=== PATIENT | female | born 1995 | race African-American/Black ===

== ENCOUNTER 2019-05-17 11:41 | Emergency (ER) | payer MEDICAID ==
--- NOTE | 2019-05-17 11:54 | ED Physician Documentation ---
PD HPI URI - Stated complaint Stated Complaint: SORE THROAT - History obtained from History obtained from: Patient - History of Present Illness Timing - onset: How many days ago (3) Timing duration: Days (3) Timing details: Gradual onset, Still present Associated symptoms: Sore throat, Swollen nodes. No: Fever, Nasal congestion, Sinus pain, Dry cough, Dyspnea, NVD Contributing factors: No: Sick contact, COPD / asthma Similar symptoms before: Has not had sx before Review of Systems Constitutional: reports: Fever (mild subjective) Nose: denies: Rhinorrhea / runny nose, Congestion Throat: reports: Sore throat, Swollen tonsils Respiratory: denies: Cough GI: denies: Nausea, Vomiting, Diarrhea Skin: denies: Rash PD PAST MEDICAL HISTORY - Past Medical History Cardiovascular: None Respiratory: None - Present Medications Home Medications: Ambulatory Orders Medication Instructions Recorded Confirmed Cephalexin [Keflex] 500 mg PO TID #20 capsule 05/17/19 dexAMETHasone [Decadron] 4 mg PO DAILY #5 tablet 05/17/19 - Allergies Allergies/Adverse Reactions: Allergies Allergy/AdvReac Type Severity Reaction Status Date / Time No Known Drug Allergies Allergy Verified 05/17/19 11:52 PD ED PE NORMAL - Vitals Vital signs reviewed: Yes - General General: Alert and oriented X 3, No acute distress, Well developed/nourished - HEENT HEENT: Other (some distortion of her voice from tonsil swelling). No: Pharynx benign - Neck Neck: Supple, no meningeal sign, Other (Mild swelling in the anterior adenopathy more on the right. The posterior pharynx shows tonsillar swelling more to the right and very mild amount of peritonsillar redness and inflammation but no obvious fluctuance or deviation of the tonsil. Left tonsil is also enlarged with some mild redness.) - Cardiac Cardiac: RRR, No murmur - Respiratory Respiratory: Clear bilaterally - Derm Derm: Normal color, Warm and dry Results - Vitals Vitals: Vital Signs - 24 hr 05/17/19 05/17/19 11:52 13:02 Temperature 37.2 C 37.3 C Heart Rate 116 H 114 H Respiratory 17 20 Rate Blood Pressure 134/82 H 133/81 H O2 Saturation 98 98 Oxygen O2 Source Room air - Labs Labs: Laboratory Tests 05/17/19 11:56 Group A Strep Rapid Negative PD MEDICAL DECISION MAKING - ED course Complexity details: considered differential (Seems isolated symptoms to tonsillitis and some mild peritonsillitis. We will treat as presumptive bacterial at this point given the isolated symptoms and findings.), d/w patient Departure - Departure Disposition: 01 Home, Self Care Clinical Impression: Peritonsillar cellulitis Acute pharyngitis Qualifiers: Pharyngitis/tonsillitis etiology: unspecified etiology Qualified Code(s): J02.9 - Acute pharyngitis, unspecified Condition: Stable Record reviewed to determine appropriate education?: Yes Instructions: ED Strep Pharyngitis Poss Prescriptions: Cephalexin [Keflex] 500 mg PO TID #20 capsule dexAMETHasone [Decadron] 4 mg PO DAILY #5 tablet Comments: Your rapid strep test is negative but it still clinically seems likely to be a bacterial infection given the swelling and redness of the tonsils. We will treated with an antibiotic and anti-inflammatory at this point. We will are doing a culture of your throat and that will result in 2 to 3 days to see if it verifies a bacterial infection. Take the cephalexin in dexamethasone antibiotic and steroid as directed. Stay well-hydrated. Tylenol or ibuprofen for fevers or pains. Recheck if not improving well over the next few days. Discharge Date/Time: 05/17/19 13:03
[2019-05-17] MEDS ORDERED: CHERRY SYRUP 10 ML UDC PO ONE (12:07)
[2019-05-17] MEDS ORDERED: cephALEXin 250 MG CAPSULE PO STA (12:07)
[2019-05-17] MEDS ORDERED: DEXAMETHASONE 10 MG/ML VIAL PO STA (12:07)
[2019-05-17] MEDS ORDERED: ACETAMINOPHEN 325 MG TABLET PO STA (12:09)
[2019-05-17 12:38] LABS: RAPID STREP SCREEN Negative (Negative)
[2019-05-17 13:03] VITALS: BP 133/81
== END 2019-05-17 13:03 | disposition home or self-care (01) ==
LOC: ED 11:41
DX: J36 Peritonsillar abscess (principal)
CPT/HCPCS: 87070; 87430; 99283; 99284; A9270

== ENCOUNTER 2021-12-02 18:33 | Emergency (ER) | payer MEDICAID ==
--- OUTSIDE RECORDS SUMMARY | 2021-12-02 18:53 | EXTERNAL MEDICAL SUMMARY RPT | Continuity of Care Document ---
:1995 Author Organization [facility] Address [address] [place] [address] Phone Allergies No information. Encounters No information. Functional Status No information. Immunizations No information. Medications No information. Problems No information. Procedures No information. Results/Labs test date author facility value unit interpret ation Result panel 1 (unknown) (no (unknown) (unknown) (no value) (units (unk nown) date) unknown) (unknown) (no (unknown) (unknown) 11/08/21 (units (unkno wn) date) unknown) (unknown) (no (unknown) (unknown) Age/Sex: 26 / F (units (unknown) date) Date of Service: unknown) (unknown) (no (unknown) (unknown) Allergic (units (unkno wn) date) rhinitis unknown) (unknown) (no (unknown) (unknown) Allergies (units (unkn own) date) unknown) (unknown) (no (unknown) (unknown) [facility] (units (unknown) date) Medicine unknown) (unknown) (no (unknown) (unknown) [place], [place] (units ( unknown) date) [id number] unknown) (unknown) (no (unknown) (unknown) Assessment + (units (u nknown) date) Plan unknown) (unknown) (no (unknown) (unknown) Attending Dr: (units ( unknown) date) Annabelle Paniagua unknown) MIXER ATTENDANT (unknown) (no (unknown) (unknown) Back pain (units (unkn own) date) (-07/2018) unknown) (unknown) (no (unknown) (unknown) Carpal tunnel (units ( unknown) date) syndrome unknown) (unknown) (no (unknown) (unknown) : 1995 (units (unknown) date) Acct:[id number] unknown) (unknown) (no (unknown) (unknown) Dept at (units (unkno wn) date) . unknown) (unknown) (no (unknown) (unknown) Documented By: (units (unknown) date) ArceliaAnnabelle unknown) [facility] 11/08/21 1002 (unknown) (no (unknown) (unknown) Draft (units (unkno wn) date) unknown) (unknown) (no (unknown) (unknown) Family History (units (unknown) date) (Reviewed unknown) 10/05/20 @ 08:44 by Benito Lee MD) (unknown) (no (unknown) (unknown) Family Practice (units (unknown) date) Office Visit unknown) (unknown) (no (unknown) (unknown) Father No (units (unkn own) date) problems noted. unknown) (unknown) (no (unknown) (unknown) Grandfather (units (un known) date) Altered renal unknown) tissue perfusion (unknown) (no (unknown) (unknown) Grandfather (units (un known) date) Unknown whether unknown) patient has any health problems (unknown) (no (unknown) (unknown) Grandmother No (units (unknown) date) problems noted. unknown) (unknown) (no (unknown) (unknown) Grandmother (units (un known) date) Unknown whether unknown) patient has any health problems (unknown) (no (unknown) (unknown) Hypertension (units (u nknown) date) unknown) (unknown) (no (unknown) (unknown) Intake Note: (units (u nknown) date) unknown) (unknown) (no (unknown) (unknown) Intake performed (units (unknown) date) by: unknown) Jong Yuen (unknown) (no (unknown) (unknown) Intake (units (unkno wn) date) unknown) (unknown) (no (unknown) (unknown) Intake- Clincial (units (unknown) date) Staff unknown) (unknown) (no (unknown) (unknown) Last Menstural (units (unknown) date) Cycle + Details unknown) (unknown) (no (unknown) (unknown) Loc: [facility] (units (unkno wn) date) unknown) (unknown) (no (unknown) (unknown) [id number] (units (unk nown) date) unknown) (unknown) (no (unknown) (unknown) Medical History (units (unknown) date) (Reviewed unknown) 10/05/20 @ 08:44 by Benito Lee MD) (unknown) (no (unknown) (unknown) Migraine (units (unkno wn) date) unknown) (unknown) (no (unknown) (unknown) Mother Adopted (units (unknown) date) unknown) (unknown) (no (unknown) (unknown) No Known Drug (units ( unknown) date) Allergies Allergy unknown) (Verified 12/05/20 14:54) (unknown) (no (unknown) (unknown) No active (units (unkn own) date) medical problems unknown) (unknown) (no (unknown) (unknown) Obesity (units (unkno wn) date) unknown) (unknown) (no (unknown) (unknown) Orders (units (unkno wn) date) unknown) (unknown) (no (unknown) (unknown) Orders: (units (unkno wn) date) unknown) (unknown) (no (unknown) (unknown) Other Menstrual (units (unknown) date) Period: Other unknown) ( ) (unknown) (no (unknown) (unknown) PFSH (units (unkno wn) date) unknown) (unknown) (no (unknown) (unknown) POC Urine Dip (units ( unknown) date) Today R30.0 - unknown) Dysuria (unknown) (no (unknown) (unknown) Patient: (units (unkno wn) date) VillarrealHamiltonOswald unknown) N MR#: (unknown) (no (unknown) (unknown) Post (units (un known) date) depression unknown) () (unknown) (no (unknown) (unknown) 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 unknown) (unknown) (no (unknown) (unknown) Smoking Status: (units (unknown) date) Never smoker unknown) (unknown) (no (unknown) (unknown) Social History (units (unknown) date) unknown) (unknown) (no (unknown) (unknown) This note may (units ( unknown) date) have been all or unknown) partially generated using voice recognition (unknown) (no (unknown) (unknown) Tobacco + (units (unkn own) date) Substance Use unknown) (unknown) (no (unknown) (unknown) Tobacco Status (units (unknown) date) unknown) (unknown) (no (unknown) (unknown) Urine Culture (units ( unknown) date) Today R30.0 - unknown) Dysuria (unknown) (no (unknown) (unknown) Visit Reasons: (units (unknown) date) Poss UTI unknown) (unknown) (no (unknown) (unknown) alcohol intake: (units (unknown) date) former unknown) (unknown) (no (unknown) (unknown) current (units (unkno wn) date) occupational unknown) exposures/hazards : No (unknown) (no (unknown) (unknown) education level: (units (unknown) date) high school unknown) (unknown) (no (unknown) (unknown) zoila/mandaeism: (units (unknown) date) Pentecostalism unknown) (unknown) (no (unknown) (unknown) have occurred. (units (unknown) date) If there are any unknown) questions, please contact the Medical Records (unknown) (no (unknown) (unknown) household (units (unkn own) date) members: spouse unknown) and children (unknown) (no (unknown) (unknown) lives (units (unkno wn) date) independently: unknown) Yes (unknown) (no (unknown) (unknown) marital status: (units (unknown) date) unknown) (unknown) (no (unknown) (unknown) may occur. (units (unk nown) date) Occasional unknown) wrong-word or 'sound-alike' substitutions may have (unknown) (no (unknown) (unknown) number of (units (unkn own) date) children: 1 unknown) (unknown) (no (unknown) (unknown) occupational (units (u nknown) date) status: unknown) unemployed (unknown) (no (unknown) (unknown) occurred due to (units (unknown) date) the inherent unknown) limitations of voice recognition software. Please (unknown) (no (unknown) (unknown) pets and (units (unkno wn) date) animals: Yes (X 1 unknown) dog) (unknown) (no (unknown) (unknown) read the note (units ( unknown) date) carefully and unknown) recognize, using context, where these substitutions (unknown) (no (unknown) (unknown) second hand (units (un known) date) exposure: No unknown) (unknown) (no (unknown) (unknown) software. (units (unkn own) date) Although every unknown) effort is made to edit content, research and development chemist errors (unknown) (no (unknown) (unknown) special zoila (units ( unknown) date) needs: No unknown) (unknown) (no (unknown) (unknown) substance use (units ( unknown) date) type: does not unknown) use and marijuana Result panel 2 (unknown) (no (unknown) (unknown) (no value) (units (unk nown) date) unknown) (unknown) (no (unknown) (unknown) 11/08/21 (units (unkno wn) date) unknown) (unknown) (no (unknown) (unknown) 11/08/21] (units (unkn own) date) unknown) (unknown) (no (unknown) (unknown) 10:10 (units (unkno wn) date) unknown) (unknown) (no (unknown) (unknown) 10:13 (units (unkno wn) date) unknown) (unknown) (no (unknown) (unknown) 13 (units (unkno wn) date) unknown) (unknown) (no (unknown) (unknown) 2 (units (unkno wn) date) unknown) (unknown) (no (unknown) (unknown) 22 (units (unkno wn) date) unknown) (unknown) (no (unknown) (unknown) :13 (units (unkno wn) date) unknown) (unknown) (no (unknown) (unknown) Age/Sex: 26 / F (units (unknown) date) Date of Service: unknown) (unknown) (no (unknown) (unknown) Allergic (units (unkno wn) date) rhinitis unknown) (unknown) (no (unknown) (unknown) Allergies (units (unkn own) date) unknown) (unknown) (no (unknown) (unknown) [facility] (units (unknown) date) Medicine unknown) (unknown) (no (unknown) (unknown) [place], [place] (units ( unknown) date) [id number] unknown) (unknown) (no (unknown) (unknown) Assessment + (units (u nknown) date) Plan unknown) (unknown) (no (unknown) (unknown) Attending Dr: (units ( unknown) date) Annabelle Paniagua unknown) MIXER ATTENDANT (unknown) (no (unknown) (unknown) BMI 43.1 (units (unkno wn) date) unknown) (unknown) (no (unknown) (unknown) BP 124/70 (units (unkn own) date) unknown) (unknown) (no (unknown) (unknown) Back pain (units (unkn own) date) (-07/2018) unknown) (unknown) (no (unknown) (unknown) Blood Pressure (units (unknown) date) Location Lt unknown) brachial (unknown) (no (unknown) (unknown) Carpal tunnel (units ( unknown) date) syndrome unknown) (unknown) (no (unknown) (unknown) : 1995 (units (unknown) date) Acct:[id number] unknown) (unknown) (no (unknown) (unknown) Dept at (units (unkno wn) date) . unknown) (unknown) (no (unknown) (unknown) Documented By: (units (unknown) date) Annabelle Paniagua unknown) MIXER ATTENDANT 11/08/21 1002 (unknown) (no (unknown) (unknown) Draft (units (unkno wn) date) unknown) (unknown) (no (unknown) (unknown) Family History (units (unknown) date) (Reviewed unknown) 10/05/20 @ 08:44 by Benito Lee MD) (unknown) (no (unknown) (unknown) Family Practice (units (unknown) date) Office Visit unknown) (unknown) (no (unknown) (unknown) Father No (units (unkn own) date) problems noted. unknown) (unknown) (no (unknown) (unknown) Grandfather (units (un known) date) Altered renal unknown) tissue perfusion (unknown) (no (unknown) (unknown) Grandfather (units (un known) date) Unknown whether unknown) patient has any health problems (unknown) (no (unknown) (unknown) Grandmother No (units (unknown) date) problems noted. unknown) (unknown) (no (unknown) (unknown) Grandmother (units (un known) date) Unknown whether unknown) patient has any health problems (unknown) (no (unknown) (unknown) Height 5 ft 3 in (units (unknown) date) unknown) (unknown) (no (unknown) (unknown) Hypertension (units (u nknown) date) unknown) (unknown) (no (unknown) (unknown) Intake Note: (units (u nknown) date) unknown) (unknown) (no (unknown) (unknown) Intake performed (units (unknown) date) by: unknown) Jong Yuen (unknown) (no (unknown) (unknown) Intake (units (unkno wn) date) unknown) (unknown) (no (unknown) (unknown) Intake- Clincial (units (unknown) date) Staff unknown) (unknown) (no (unknown) (unknown) Last Menstural (units (unknown) date) Cycle + Details unknown) (unknown) (no (unknown) (unknown) Loc: [facility] (units (unkno wn) date) unknown) (unknown) (no (unknown) (unknown) [id number] (units (unk nown) date) unknown) (unknown) (no (unknown) (unknown) Medical History (units (unknown) date) (Reviewed unknown) 10/05/20 @ 08:44 by Benito Lee MD) (unknown) (no (unknown) (unknown) Medications (units (un known) date) unknown) (unknown) (no (unknown) (unknown) Migraine (units (unkno wn) date) unknown) (unknown) (no (unknown) (unknown) Mother Adopted (units (unknown) date) unknown) (unknown) (no (unknown) (unknown) No Known Drug (units ( unknown) date) Allergies Allergy unknown) (Verified 11/08/21 10:09) (unknown) (no (unknown) (unknown) No active (units (unkn own) date) medical problems unknown) (unknown) (no (unknown) (unknown) Obesity (units (unkno wn) date) unknown) (unknown) (no (unknown) (unknown) Orders (units (unkno wn) date) unknown) (unknown) (no (unknown) (unknown) Orders: (units (unkno wn) date) unknown) (unknown) (no (unknown) (unknown) Other Menstrual (units (unknown) date) Period: Other unknown) ( ) (unknown) (no (unknown) (unknown) Oxygen Delivery (units (unknown) date) Method room air unknown) (unknown) (no (unknown) (unknown) PFSH (units (unkno wn) date) unknown) (unknown) (no (unknown) (unknown) POC Urine Dip (units ( unknown) date) Today R30.0 - unknown) Dysuria (unknown) (no (unknown) (unknown) Patient: (units (unkno wn) date) VillarrealOswald unknown) N MR#: (unknown) (no (unknown) (unknown) Position Sitting (units (unknown) date) unknown) (unknown) (no (unknown) (unknown) Post (units (un known) date) depression unknown) (-09/2018) (unknown) (no (unknown) (unknown) 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 unknown) Lower back and flank pain for a couple months. (unknown) (no (unknown) (unknown) Pulse 85 (units (unkno wn) date) unknown) (unknown) (no (unknown) (unknown) Pulse Oximetry (units (unknown) date) (%) 99 unknown) (unknown) (no (unknown) (unknown) Pulse Source (units (u nknown) date) Monitor unknown) (unknown) (no (unknown) (unknown) Reason For Visit (units (unknown) date) unknown) (unknown) (no (unknown) (unknown) Relief) 1 spray (units (unknown) date) intranasal DAILY unknown) 10/29/19 [History Confirmed 11/08/21] (unknown) (no (unknown) (unknown) Respiration 14 (units (unknown) date) unknown) (unknown) (no (unknown) (unknown) Results (units (unkno wn) date) unknown) (unknown) (no (unknown) (unknown) (spontaneous (units (unknown) date) vaginal delivery) unknown) (-10/01/18) (unknown) (no (unknown) (unknown) Signed By: (units (unk nown) date) unknown) (unknown) (no (unknown) (unknown) Sister No (units (unkn own) date) problems noted. unknown) (unknown) (no (unknown) (unknown) Smoking Status: (units (unknown) date) Never smoker unknown) (unknown) (no (unknown) (unknown) Social History (units (unknown) date) unknown) (unknown) (no (unknown) (unknown) Temp 97.8 F (units (un known) date) unknown) (unknown) (no (unknown) (unknown) Temp Source Skin (units (unknown) date) unknown) (unknown) (no (unknown) (unknown) This note may (units ( unknown) date) have been all or unknown) partially generated using voice recognition (unknown) (no (unknown) (unknown) Tobacco + (units (unkn own) date) Substance Use unknown) (unknown) (no (unknown) (unknown) Tobacco Status (units (unknown) date) unknown) (unknown) (no (unknown) (unknown) Urine Appearance (units (unknown) date) Clear Last Edit unknown) by Jong Yuen MA on 11/08/21 10:13 (unknown) (no (unknown) (unknown) Urine Bilirubin (units (unknown) date) Negative Last unknown) Edit by Jong Yuen MA on 11/08/21 10:13 (unknown) (no (unknown) (unknown) Urine Blood (units (un known) date) Negative Last unknown) Edit by Jong Yuen MA on 11/08/21 10:13 (unknown) (no (unknown) (unknown) Urine Color (units (un known) date) Yellow Last Edit unknown) by Jong Yuen MA on 11/08/21 10:13 (unknown) (no (unknown) (unknown) Urine Culture (units ( unknown) date) Today R30.0 - unknown) Dysuria (unknown) (no (unknown) (unknown) Urine Dipstick (units (unknown) date) unknown) (unknown) (no (unknown) (unknown) Urine Glucose (units ( unknown) date) Negative mg/dL unknown) Last Edit by Jong Yuen MA on 11/08/21 10: (unknown) (no (unknown) (unknown) Urine Ketones (units ( unknown) date) Negative Last unknown) Edit by Jong Yuen MA on 11/08/21 10:13 (unknown) (no (unknown) (unknown) Urine Leukocyte (units (unknown) date) Esterase Negative unknown) Last Edit by Jong Yuen MA on (unknown) (no (unknown) (unknown) Urine Nitrate (units ( unknown) date) Negative Last unknown) Edit by Jong Yuen MA on 11/08/21 10:13 (unknown) (no (unknown) (unknown) Urine Protein +- (units (unknown) date) 15 mg/dL Last unknown) Edit by Jong Yuen MA on 11/08/21 10:13 (unknown) (no (unknown) (unknown) Urine Specific (units (unknown) date) [place] 1.025 unknown) Last Edit by Jong Yuen MA on 11/08/21 10 (unknown) (no (unknown) (unknown) Urine (units (unkno wn) date) Urobilinogen - unknown) 0.2 mg/dL Last Edit by Jong Yuen MA on (unknown) (no (unknown) (unknown) Urine pH 6.0 (units (u nknown) date) Last Edit by unknown) Jong Yuen MA on 11/08/21 10:13 (unknown) (no (unknown) (unknown) Visit Reasons: (units (unknown) date) Poss UTI unknown) (unknown) (no (unknown) (unknown) Vitals (units (unkno wn) date) unknown) (unknown) (no (unknown) (unknown) Weight 243 lb 6 (units (unknown) date) oz unknown) (unknown) (no (unknown) (unknown) [Rx Confirmed (units ( unknown) date) 11/08/21] unknown) (unknown) (no (unknown) (unknown) alcohol intake: (units (unknown) date) former unknown) (unknown) (no (unknown) (unknown) current (units (unkno wn) date) occupational unknown) exposures/hazards : No (unknown) (no (unknown) (unknown) education level: (units (unknown) date) high school unknown) (unknown) (no (unknown) (unknown) zoila/mandaeism: (units (unknown) date) Pentecostalism unknown) (unknown) (no (unknown) (unknown) ferrous gluconate (units (unknown) date) 324 mg (37.5 mg unknown) iron) tablet 324 mg PO DAILY #90 tabs 03/15/20 (unknown) (no (unknown) (unknown) fluticasone (units (un known) date) propionate 50 unknown) mcg/actuation nasal spray,suspension (Flonase Allergy (unknown) (no (unknown) (unknown) have occurred. (units (unknown) date) If there are any unknown) questions, please contact the Medical Records (unknown) (no (unknown) (unknown) household (units (unkn own) date) members: spouse unknown) and children (unknown) (no (unknown) (unknown) lives (units (unkno wn) date) independently: unknown) Yes (unknown) (no (unknown) (unknown) marital status: (units (unknown) date) unknown) (unknown) (no (unknown) (unknown) may occur. (units (unk nown) date) Occasional unknown) wrong-word or 'sound-alike' substitutions may have (unknown) (no (unknown) (unknown) norethindrone (units ( unknown) date) (contraceptive) unknown) 0.35 mg tablet 0.35 mg PO DAILY #84 tabs 12/05/20 (unknown) (no (unknown) (unknown) number of (units (unkn own) date) children: 1 unknown) (unknown) (no (unknown) (unknown) occupational (units (u nknown) date) status: unknown) unemployed (unknown) (no (unknown) (unknown) occurred due to (units (unknown) date) the inherent unknown) limitations of voice recognition software. Please (unknown) (no (unknown) (unknown) pets and (units (unkno wn) date) animals: Yes (X 1 unknown) dog) (unknown) (no (unknown) (unknown) prenat.vits,tamia, (units (unknown) date) pat-eotb-erxga 1 unknown) tab PO DAILY #90 tabs 03/15/20 [Rx Confirmed (unknown) (no (unknown) (unknown) read the note (units ( unknown) date) carefully and unknown) recognize, using context, where these substitutions (unknown) (no (unknown) (unknown) second hand (units (un known) date) exposure: No unknown) (unknown) (no (unknown) (unknown) software. (units (unkn own) date) Although every unknown) effort is made to edit content, research and development chemist errors (unknown) (no (unknown) (unknown) special zoila (units ( unknown) date) needs: No unknown) (unknown) (no (unknown) (unknown) substance use (units ( unknown) date) type: does not unknown) use and marijuana Result panel 3 (unknown) (no (unknown) (unknown) (no value) (units (unk nown) date) unknown) (unknown) (no (unknown) (unknown) (1) Suprapubic (units (unknown) date) pressure: unknown) (unknown) (no (unknown) (unknown) 11/08/21 1023 (units ( unknown) date) unknown) (unknown) (no (unknown) (unknown) 11/08/21 (units (unkno wn) date) unknown) (unknown) (no (unknown) (unknown) 11/08/21] (units (unkn own) date) unknown) (unknown) (no (unknown) (unknown) 10:10 (units (unkno wn) date) unknown) (unknown) (no (unknown) (unknown) 10:13 (units (unkno wn) date) unknown) (unknown) (no (unknown) (unknown) 13 (units (unkno wn) date) unknown) (unknown) (no (unknown) (unknown) 2 (units (unkno wn) date) unknown) (unknown) (no (unknown) (unknown) 22 (units (unkno wn) date) unknown) (unknown) (no (unknown) (unknown) :13 (units (unkno wn) date) unknown) (unknown) (no (unknown) (unknown) Age/Sex: 26 / F (units (unknown) date) Date of Service: unknown) (unknown) (no (unknown) (unknown) Allergic rhinitis (units (unknown) date) unknown) (unknown) (no (unknown) (unknown) Allergies (units (unkn own) date) unknown) (unknown) (no (unknown) (unknown) [facility] (units (unknown) date) Medicine unknown) (unknown) (no (unknown) (unknown) [place], [place] (units ( unknown) date) [id number] unknown) (unknown) (no (unknown) (unknown) Assessment + Plan (units (unknown) date) unknown) (unknown) (no (unknown) (unknown) Attending Dr: (units ( unknown) date) Annabelle Paniagua unknown) MIXER ATTENDANT (unknown) (no (unknown) (unknown) BMI 43.1 (units (unkno wn) date) unknown) (unknown) (no (unknown) (unknown) BP 124/70 (units (unkn own) date) unknown) (unknown) (no (unknown) (unknown) Back pain (units (unkn own) date) () unknown) (unknown) (no (unknown) (unknown) Blood Pressure (units (unknown) date) Location Lt unknown) brachial (unknown) (no (unknown) (unknown) Carpal tunnel (units ( unknown) date) syndrome unknown) (unknown) (no (unknown) (unknown) Chief Complaint (units (unknown) date) unknown) (unknown) (no (unknown) (unknown) Chief Complaint: (units (unknown) date) Suprapubic unknown) pressure (unknown) (no (unknown) (unknown) Const (units (unkno wn) date) unknown) (unknown) (no (unknown) (unknown) : 1995 (units (unknown) date) Acct:[id number] unknown) (unknown) (no (unknown) (unknown) Dept at (units (unkno wn) date) . unknown) (unknown) (no (unknown) (unknown) Details: (units (unkno wn) date) unknown) (unknown) (no (unknown) (unknown) Documented By: (units (unknown) date) Annabelle Paniagua unknown) MIXER ATTENDANT 11/08/21 1002 (unknown) (no (unknown) (unknown) Effort + (units (unkno wn) date) Inspection: normal unknown) respiratory effort (unknown) (no (unknown) (unknown) Exam (units (unkno wn) date) unknown) (unknown) (no (unknown) (unknown) Eyes (units (unkno wn) date) unknown) (unknown) (no (unknown) (unknown) Family History (units (unknown) date) (Reviewed 10/05/20 unknown) @ 08:44 by Benito Lee MD) (unknown) (no (unknown) (unknown) Family Practice (units (unknown) date) Office Visit unknown) (unknown) (no (unknown) (unknown) Father No (units (unkn own) date) problems noted. unknown) (unknown) (no (unknown) (unknown) GI (units (unkno wn) date) unknown) (unknown) (no (unknown) (unknown) (units (unkno wn) date) unknown) (unknown) (no (unknown) (unknown) General: (units (unkno wn) date) appearance normal, unknown) both eyes and all related structures (unknown) (no (unknown) (unknown) General: (units (unkno wn) date) cooperative, unknown) healthy appearing, comfortable and no acute distress (unknown) (no (unknown) (unknown) General: no (units (un known) date) rashes or lesions unknown) noted (unknown) (no (unknown) (unknown) Grandfather (units (un known) date) Altered renal unknown) tissue perfusion (unknown) (no (unknown) (unknown) Grandfather (units (un known) date) Unknown whether unknown) patient has any health problems (unknown) (no (unknown) (unknown) Grandmother No (units (unknown) date) problems noted. unknown) (unknown) (no (unknown) (unknown) Grandmother (units (un known) date) Unknown whether unknown) patient has any health problems (unknown) (no (unknown) (unknown) HENMT (units (unkno wn) date) unknown) (unknown) (no (unknown) (unknown) HPI and exam (units (u nknown) date) indicate need for unknown) point of care urine testing that does not (unknown) (no (unknown) (unknown) HPI (units (unkno wn) date) unknown) (unknown) (no (unknown) (unknown) Head: normal to (units (unknown) date) inspection unknown) (unknown) (no (unknown) (unknown) Height 5 ft 3 in (units (unknown) date) unknown) (unknown) (no (unknown) (unknown) Hypertension (units (u nknown) date) unknown) (unknown) (no (unknown) (unknown) Inspection: (units (un known) date) normal to unknown) inspection (unknown) (no (unknown) (unknown) Intake Note: (units (u nknown) date) unknown) (unknown) (no (unknown) (unknown) Intake performed (units (unknown) date) by: Jong Yuen unknown) (unknown) (no (unknown) (unknown) Intake (units (unkno wn) date) unknown) (unknown) (no (unknown) (unknown) Intake- Clincial (units (unknown) date) Staff unknown) (unknown) (no (unknown) (unknown) Last Menstural (units (unknown) date) Cycle + Details unknown) (unknown) (no (unknown) (unknown) Loc: [facility] (units (unkno wn) date) unknown) (unknown) (no (unknown) (unknown) [id number] (units (unk nown) date) unknown) (unknown) (no (unknown) (unknown) Medical History (units (unknown) date) (Reviewed 10/05/20 unknown) @ 08:44 by Benito Lee MD) (unknown) (no (unknown) (unknown) Medications (units (un known) date) unknown) (unknown) (no (unknown) (unknown) Migraine (units (unkno wn) date) unknown) (unknown) (no (unknown) (unknown) Mother Adopted (units (unknown) date) unknown) (unknown) (no (unknown) (unknown) Neck (units (unkno wn) date) unknown) (unknown) (no (unknown) (unknown) Neck: normal (units (u nknown) date) visual inspection unknown) and full ROM (unknown) (no (unknown) (unknown) No CVA tenderness (units (unknown) date) unknown) (unknown) (no (unknown) (unknown) No Known Drug (units ( unknown) date) Allergies Allergy unknown) (Verified 11/08/21 10:09) (unknown) (no (unknown) (unknown) No active medical (units (unknown) date) problems unknown) (unknown) (no (unknown) (unknown) No tenderness (units ( unknown) date) with palpation unknown) (unknown) (no (unknown) (unknown) Obesity (units (unkno wn) date) unknown) (unknown) (no (unknown) (unknown) Orders (units (unkno wn) date) unknown) (unknown) (no (unknown) (unknown) Orders: (units (unkno wn) date) unknown) (unknown) (no (unknown) (unknown) Other Menstrual (units (unknown) date) Period: Other unknown) ( ) (unknown) (no (unknown) (unknown) Other: (units (unkno wn) date) unknown) (unknown) (no (unknown) (unknown) Oxygen Delivery (units (unknown) date) Method room air unknown) (unknown) (no (unknown) (unknown) PFSH (units (unkno wn) date) unknown) (unknown) (no (unknown) (unknown) POC Urine Dip (units ( unknown) date) Today R30.0 - unknown) Dysuria (unknown) (no (unknown) (unknown) Palpation: soft (units (unknown) date) unknown) (unknown) (no (unknown) (unknown) Patient is (units (unkn own) date) concerned for unknown) urinary tract infection as she had had similar symptoms (unknown) (no (unknown) (unknown) Patient presents (units (unknown) date) to walk-in clinic unknown) with complaints intermittent suprapubic (unknown) (no (unknown) (unknown) Patient: (units (unkno wn) date) Villarreal,Oswald N unknown) MR#: (unknown) (no (unknown) (unknown) Plan (units (unkno wn) date) unknown) (unknown) (no (unknown) (unknown) Position Sitting (units (unknown) date) unknown) (unknown) (no (unknown) (unknown) Post (units (un known) date) depression unknown) (-09/2018) (unknown) (no (unknown) (unknown) 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 unknown) Lower back and flank pain for a couple months. (unknown) (no (unknown) (unknown) Pulse 85 (units (unkno wn) date) unknown) (unknown) (no (unknown) (unknown) Pulse Oximetry (units (unknown) date) (%) 99 unknown) (unknown) (no (unknown) (unknown) Pulse Source (units (u nknown) date) Monitor unknown) (unknown) (no (unknown) (unknown) Reason For Visit (units (unknown) date) unknown) (unknown) (no (unknown) (unknown) Relief) 1 spray (units (unknown) date) intranasal DAILY unknown) 10/29/19 [History Confirmed 11/08/21] (unknown) (no (unknown) (unknown) Resp (units (unkno wn) date) unknown) (unknown) (no (unknown) (unknown) Respiration 14 (units (unknown) date) unknown) (unknown) (no (unknown) (unknown) Results (units (unkno wn) date) unknown) (unknown) (no (unknown) (unknown) (spontaneous (units (unknown) date) vaginal delivery) unknown) (-10/01/18) (unknown) (no (unknown) (unknown) Signed By: (units (unk nown) date) <Electronically unknown) signed by Annabelle Paniagua> (unknown) (no (unknown) (unknown) Signed (units (unkno wn) date) unknown) (unknown) (no (unknown) (unknown) Sister No (units (unkn own) date) problems noted. unknown) (unknown) (no (unknown) (unknown) Skin (units (unkno wn) date) unknown) (unknown) (no (unknown) (unknown) Smoking Status: (units (unknown) date) Never smoker unknown) (unknown) (no (unknown) (unknown) Social History (units (unknown) date) unknown) (unknown) (no (unknown) (unknown) Temp 97.8 F (units (un known) date) unknown) (unknown) (no (unknown) (unknown) Temp Source Skin (units (unknown) date) unknown) (unknown) (no (unknown) (unknown) This note may (units ( unknown) date) have been all or unknown) partially generated using voice recognition (unknown) (no (unknown) (unknown) Tobacco + (units (unkn own) date) Substance Use unknown) (unknown) (no (unknown) (unknown) Tobacco Status (units (unknown) date) unknown) (unknown) (no (unknown) (unknown) Urine Appearance (units (unknown) date) Clear Last Edit by unknown) Jong Yuen MA on 11/08/21 10:13 (unknown) (no (unknown) (unknown) Urine Bilirubin (units (unknown) date) Negative Last Edit unknown) by Jong Yuen MA on 11/08/21 10:13 (unknown) (no (unknown) (unknown) Urine Blood (units (un known) date) Negative Last Edit unknown) by Jong Yuen MA on 11/08/21 10:13 (unknown) (no (unknown) (unknown) Urine Color (units (un known) date) Yellow Last Edit unknown) by Jong Yuen MA on 11/08/21 10:13 (unknown) (no (unknown) (unknown) Urine Culture (units ( unknown) date) Today R30.0 - unknown) Dysuria (unknown) (no (unknown) (unknown) Urine Dipstick (units (unknown) date) unknown) (unknown) (no (unknown) (unknown) Urine Glucose (units ( unknown) date) Negative mg/dL unknown) Last Edit by Jong Yuen MA on 11/08/21 10: (unknown) (no (unknown) (unknown) Urine Ketones (units ( unknown) date) Negative Last Edit unknown) by Jong Yuen MA on 11/08/21 10:13 (unknown) (no (unknown) (unknown) Urine Leukocyte (units (unknown) date) Esterase Negative unknown) Last Edit by Jong Yuen MA on 11/08/ (unknown) (no (unknown) (unknown) Urine Nitrate (units ( unknown) date) Negative Last Edit unknown) by Jong Yuen MA on 11/08/21 10:13 (unknown) (no (unknown) (unknown) Urine Protein +- (units (unknown) date) 15 mg/dL Last Edit unknown) by Jong Yuen MA on 11/08/21 10:13 (unknown) (no (unknown) (unknown) Urine Specific (units (unknown) date) [place] 1.025 Last unknown) Edit by Jong Yuen MA on 11/08/21 10 (unknown) (no (unknown) (unknown) Urine (units (unkno wn) date) Urobilinogen - 0.2 unknown) mg/dL Last Edit by Jong Yuen MA on (unknown) (no (unknown) (unknown) Urine pH 6.0 Last (units (unknown) date) Edit by Jong unknownDerek Yuen MA on 11/08/21 10:13 (unknown) (no (unknown) (unknown) Visit Reasons: (units (unknown) date) Poss UTI unknown) (unknown) (no (unknown) (unknown) Vitals (units (unkno wn) date) unknown) (unknown) (no (unknown) (unknown) Weight 243 lb 6 (units (unknown) date) oz unknown) (unknown) (no (unknown) (unknown) Wet Prep Tric BV (units (unknown) date) [place] Today unknown) N89.8 - Other specified noninflammatory disorders (unknown) (no (unknown) (unknown) [Rx Confirmed (units ( unknown) date) 11/08/21] unknown) (unknown) (no (unknown) (unknown) ago, has not been (units (unknown) date) sexually active unknown) since. patient denies new activity, or (unknown) (no (unknown) (unknown) alcohol intake: (units (unknown) date) former unknown) (unknown) (no (unknown) (unknown) continue to (units (unk nown) date) monitor symptoms, unknown) if symptoms worsen, do not improve patient recheck (unknown) (no (unknown) (unknown) culture and treat (units (unknown) date) accordingly. We unknown) also obtained wet prep. Patient will (unknown) (no (unknown) (unknown) current (units (unkno wn) date) occupational unknown) exposures/hazards: No (unknown) (no (unknown) (unknown) education level: (units (unknown) date) high school unknown) (unknown) (no (unknown) (unknown) exercise regimen. (units (unknown) date) She denies chance unknown) of STDs. Patient denies control at (unknown) (no (unknown) (unknown) zoila/mandaeism: (units (unknown) date) [employer]ism unknown) (unknown) (no (unknown) (unknown) ferrous gluconate (units (unknown) date) 324 mg (37.5 mg unknown) iron) tablet 324 mg PO DAILY #90 tabs 03/15/20 (unknown) (no (unknown) (unknown) fluticasone (units (un known) date) propionate 50 unknown) mcg/actuation nasal spray,suspension (Flonase Allergy (unknown) (no (unknown) (unknown) have occurred. If (units (unknown) date) there are any unknown) questions, please contact the Medical Records (unknown) (no (unknown) (unknown) household (units (unkn own) date) members: spouse unknown) and children (unknown) (no (unknown) (unknown) in the past and (units (unknown) date) did have a UTI. unknown) Patient reports having normal menses 2 weeks (unknown) (no (unknown) (unknown) indicate that (units ( unknown) date) patient has a unknown) urinary tract infection. Will send off urine (unknown) (no (unknown) (unknown) lives (units (unkno wn) date) independently: Yes unknown) (unknown) (no (unknown) (unknown) marital status: (units (unknown) date) unknown) (unknown) (no (unknown) (unknown) may occur. (units (unk nown) date) Occasional unknown) wrong-word or 'sound-alike' substitutions may have (unknown) (no (unknown) (unknown) norethindrone (units ( unknown) date) (contraceptive) unknown) 0.35 mg tablet 0.35 mg PO DAILY #84 tabs 12/05/20 (unknown) (no (unknown) (unknown) number of (units (unkn own) date) children: 1 unknown) (unknown) (no (unknown) (unknown) occupational (units (u nknown) date) status: unemployed unknown) (unknown) (no (unknown) (unknown) occurred due to (units (unknown) date) the inherent unknown) limitations of voice recognition software. Please (unknown) (no (unknown) (unknown) of vagina (units (unkn own) date) unknown) (unknown) (no (unknown) (unknown) or go to the (units (u nknown) date) emergency unknown) department. Follow-up with primary care as needed. (unknown) (no (unknown) (unknown) pets and animals: (units (unknown) date) Yes (X 1 dog) unknown) (unknown) (no (unknown) (unknown) prenat.nia,tamia,m (units (unknown) date) qr-vzzu-jahcy 1 unknown) tab PO DAILY #90 tabs 03/15/20 [Rx Confirmed (unknown) (no (unknown) (unknown) pressure, low (units ( unknown) date) back pain, mild unknown) dysuria for couple of months. Patient also (unknown) (no (unknown) (unknown) read the note (units ( unknown) date) carefully and unknown) recognize, using context, where these substitutions (unknown) (no (unknown) (unknown) reports grayish (units (unknown) date) vaginal discharge. unknown) She denies fever, vomiting, constipation, (unknown) (no (unknown) (unknown) second hand (units (un known) date) exposure: No unknown) (unknown) (no (unknown) (unknown) software. (units (unkn own) date) Although every unknown) effort is made to edit content, research and development chemist errors (unknown) (no (unknown) (unknown) special zoila (units ( unknown) date) needs: No unknown) (unknown) (no (unknown) (unknown) substance use (units ( unknown) date) type: does not use unknown) and marijuana (unknown) (no (unknown) (unknown) this time. She is (units (unknown) date) alert, oriented unknown) and comfortable. (unknown) (no (unknown) (unknown) vaginal itching (units (unknown) date) or burning, unknown) vaginal lesions. She reports occasional diarrhea. Result panel 4 (unknown) (no date) (unknown) (unknown) (no value) (units (un known) unknown) (unknown) (no date) (unknown) (unknown) No WBC seen (units (u nknown) unknown) (unknown) (no date) (unknown) (unknown) None seen (units (unk nown) unknown) Result panel 5 (unknown) (no date) (unknown) (unknown) (no value) (units (un known) unknown) (unknown) (no date) (unknown) (unknown) Very Early (units (un known) Growth: Culture unknown) too young for work-up reincubated Result panel 6 (unknown) (no (unknown) (unknown) (no value) (units (unk nown) date) unknown) (unknown) (no (unknown) (unknown) <10,000 cfu/ml (unkno wn) date) (unknown) (no (unknown) (unknown) Group B Strep pos (units (unknown) date) unknown) (unknown) (no (unknown) (unknown) MIXED GRAM POSITIVE (unit s (unknown) date) ROSI unknown) (unknown) (no (unknown) (unknown) No Further Workup (units (unknown) date) unknown) (unknown) (no (unknown) (unknown) STRGRBStreptococcus (unit s (unknown) date) group B unknown) Social History No information. Vital Signs No information.
[2021-12-02 19:02] VITALS: BP 115/53
[2021-12-02] MEDS ORDERED: ACETAMINOPHEN 500 MG TABLET PO STA (20:23)
[2021-12-02 20:39] LABS: B. PARAPERTUSSIS- RESP PCR PAN NOT DETECTED; B. PERTUSSIS- RESP PCR PANEL NOT DETECTED; C. PNEUMONIAE- RESP PCR PANEL NOT DETECTED; CORONAVIRUS 229E-RESP PCR NOT DETECTED; CORONAVIRUS HKU1-RESP PCR NOT DETECTED; CORONAVIRUS NL63-RESP PCR NOT DETECTED; CORONAVIRUS OC43-RESP PCR NOT DETECTED; HUMAN METAPNEUMOVIRUS NOT DETECTED; INFLUENZA A- RESP PCR PANEL NOT DETECTED; INFLUENZA B - RESP PCR PANEL NOT DETECTED; M. PNEUMONIAE- RESP PCR PANEL NOT DETECTED; PARAINFLUENZA VIRUS 1 NOT DETECTED; PARAINFLUENZA VIRUS 2 NOT DETECTED; PARAINFLUENZA VIRUS 3 NOT DETECTED; PARAINFLUENZA VIRUS 4 NOT DETECTED; RHINOVIRUS/ENTEROVIRUS NOT DETECTED; RSV- RESP PCR PANEL NOT DETECTED; SARS-CoV-2 -RESP PCR PANEL NOT DETECTED
--- NOTE | 2021-12-02 20:46 | XRAY Report ---
PROCEDURE: Chest 1 View X-Ray INDICATIONS: cough TECHNIQUE: One view of the chest was acquired. COMPARISON: FINDINGS: Surgical changes and devices: None. Lungs and pleura: No pleural effusions or pneumothorax. Lungs are clear. Mediastinum: Mediastinal contours appear normal. Heart size is normal. Bones and chest wall: No suspicious bony lesions. There is oval density projecting over the left asp ect of the lower thoracic spine which is likely external. IMPRESSION: 1. No acute cardiopulmonary disease. 2. Oval density projecting over the lower thoracic spine is likely external. Recommend [facility] clinical exam. Reviewed by: Reinier Workman MD on 12/02/2021 8:45 PM PDT Approved by: Reinier Workman MD on 12/02/2021 8:45 PM PDT Station ID: [id number]
[2021-12-02 20:55] LABS: RAPID STREP SCREEN Negative (Negative)
--- NOTE | 2021-12-02 21:00 | ED Physician Documentation ---
PD HPI URI - Stated complaint Stated Complaint: HEADACHE/CHILLS - Chief complaint Chief Complaint: Resp - History obtained from History obtained from: Patient - Additional information Additional information: Patient is a 26-year-old Presenting for evaluation of bitemporal headache, chills, body aches, cough productive of clear phlegm, sore throat since Saturday. She is here with her 2 young children who are also being evaluated for URI symptoms. She has been using Tylenol at home which does allow her to sleep but her headache and body aches returned.She has been able to hydrate with fluids. She denies difficulty breathing, chest pain, abdominal pain, vomiting, dysuria. Review of Systems Constitutional: reports: Chills, Myalgias Nose: reports: Congestion Throat: reports: Sore throat Cardiac: denies: Chest pain / pressure Respiratory: reports: Cough. denies: Dyspnea GI: denies: Abdominal Pain, Vomiting : denies: Dysuria Musculoskeletal: denies: Back pain Neurologic: reports: Headache PD PAST MEDICAL HISTORY - Past Medical History Cardiovascular: None Respiratory: None - Present Medications Home Medications: Ambulatory Orders Medication Instructions Recorded Confirmed No Known Home Medications 12/02/21 12/02/21 - Allergies Allergies/Adverse Reactions: Allergies Allergy/AdvReac Type Severity Reaction Status Date / Time No Known Drug Allergies Allergy Verified 12/02/21 19:02 - Social History Does the pt smoke?: No Smoking Status: Never smoker Does the pt drink ETOH?: No Does the pt have substance abuse?: No PD ED PE NORMAL - General General: Alert and oriented X 3, No acute distress, Well developed/nourished - HEENT HEENT: Atraumatic, Moist mucous membranes, Pharynx benign (No significant erythema, exudate, oral swelling; normal speech) - Neck Neck: Supple, no meningeal sign, No bony TTP - Cardiac Cardiac: RRR (Patient initial heart rate was noted to be tachycardic but appears within normal limits on my evaluation), Strong equal pulses - Respiratory Respiratory: No respiratory distress, Clear bilaterally - Abdomen Abdomen: Normal bowel sounds, Soft, Non tender, Non distended - Derm Derm: Warm and dry - Extremities Extremities: No edema - Neuro Neuro: Alert and oriented X 3, No motor deficit, Normal speech Results - Vitals Vitals: Vital Signs - 24 hr 12/02/21 18:59 Temperature 36.7 C Heart Rate 115 H Respiratory 18 Rate Blood Pressure 115/53 L O2 Saturation 97 Oxygen O2 Source Room air - Labs Labs: Laboratory Tests 12/02/21 12/02/21 19:05 20:41 Nasal Adenovirus (PCR) NOT DETECTED Nasal B. parapertussis DNA (PCR) NOT DETECTED Nasal Coronavir 229E PCR NOT DETECTED Nasal Coronavir HKU1 PCR NOT DETECTED Nasal Coronavir NL63 PCR NOT DETECTED Nasal Coronavir OC43 PCR NOT DETECTED Nasal Enterovir/Rhinovir PCR NOT DETECTED Nasal Influenza B PCR NOT DETECTED Nasal Influenza A PCR NOT DETECTED Nasal Parainfluen 1 PCR NOT DETECTED Nasal Parainfluen 2 PCR NOT DETECTED Nasal Parainfluen 3 PCR NOT DETECTED Nasal Parainfluen 4 PCR NOT DETECTED Nasal RSV (PCR) NOT DETECTED Nasal B.pertussis DNA PCR NOT DETECTED Nasal C.pneumoniae (PCR) NOT DETECTED Rusty Human Metapneumo PCR NOT DETECTED Nasal M.pneumoniae (PCR) NOT DETECTED Nasal SARS-CoV-2 (PCR) NOT DETECTED Group A Strep Rapid Negative PD MEDICAL DECISION MAKING - ED course Complexity details: reviewed results, re-evaluated patient, d/w patient ED course: Patient presenting for evaluation of URI symptoms. Strep test is negative and chest x-ray appears clear. Respiratory panel is also negative. She is here with her 2 young children who are also being evaluated for URI symptoms. Her son is positive for rhinovirus. She was initially tachycardic at triage but overall is very well-appearing and easily tending to her children in the room without any difficulties.Her headache appears bitemporal and does not have symptoms to suggest meningitis or subarachnoid hemorrhage.Although respiratory panel is negative I still suspect a viral etiology. Discussed continuing with supportive care as well as concerning symptoms to return for. Departure - Departure Disposition: 01 Home, Self Care Clinical Impression: Upper respiratory infection Condition: Stable Instructions: ED Viral Syndrome Comments: You have been evaluated for symptoms that suggest an upper respiratory infection. Your respiratory panel is negative but there are other viruses that we do not test for that you could also have or it may just not be picking up the virus. Your son did test positive for rhinovirus And your daughter also appears to have a viral illness. Your chest x-ray is clear with no signs of pneumonia. Your strep test is negative. Please continue to hydrate with plenty of fluids. You can use acetaminophen or ibuprofen as needed for aches or pains. If you have any worsening symptoms please consider return to the emergency department. Discharge Date/Time: 12/02/21 21:19
== END 2021-12-02 21:19 | disposition home or self-care (01) ==
LOC: ED 18:33
DX: J06.9 Acute upper respiratory infection, unspecified (principal); Z20.822 Contact with and (suspected) exposure to COVID-19
CPT/HCPCS: 71045; 87070; 87430; 87633; 99282; 99284; A9270

== ENCOUNTER 2023-02-05 08:00 | Outpatient (CLI) | payer MEDICAID ==
[2023-02-05 16:37] LABS: BILIRUBIN,URINE NEGATIVE (NEGATIVE); GLUCOSE, URINE (UA) NEGATIVE (NEGATIVE); KETONES,URINE (UA) NEGATIVE (NEGATIVE); LEUKOCYTE ESTERASE, URINE SMALL (NEGATIVE); NITRITE,URINE NEGATIVE (NEGATIVE); OCCULT BLOOD,URINE NEGATIVE (NEGATIVE); PROTEIN,URINE NEGATIVE (NEGATIVE); UROBILINOGEN,URINE 0.2 (NORMAL) E.U./dL (NORMAL)
[2023-02-05 16:38] LABS: CLARITY,URINE CLOUDY (CLEAR)
[2023-02-05 16:48] LABS: BACTERIA,URINE Moderate /HPF (None Seen); RBC,URINE 0-5 /HPF (0-5); SQUAMOUS EPITHELIAL CELL,UR MANY Squamous (<= Few)
== END 2023-02-05 23:59 | disposition home or self-care (01) ==
LOC: LAB.WC 08:00 → MERGE 08:00 → LAB.WC 23:59
PROVIDERS: ATTEND Nurse Practitioner
DX: Z34.90 Encounter for supervision of normal pregnancy, unspecified, unspecified trimester (principal)
CPT/HCPCS: 81001; 87086

== ENCOUNTER 2023-02-06 10:28 | Outpatient (CLI) | payer MEDICAID ==
[2023-02-06 10:46] LABS: BASOPHILS % (AUTO) 0.4 %; EOSINOPHILS # (AUTO) 0.2 10^3/uL (0.0-0.7); EOSINOPHILS % (AUTO) 2.1 %; HCT - HEMATOCRIT 34.7 % (37.0-47.0); HGB - HEMOGLOBIN 10.6 g/dL (12.0-16.0); LYMPHOCYTES # (AUTO) 2.1 10^3/uL (1.5-3.5); LYMPHOCYTES % (AUTO) 27.2 %; MEAN CORPUSCULAR HEMOGLOBIN 22.5 pg (27.0-31.0); MEAN CORPUSCULAR HGB CONC 30.5 g/dL (32.0-36.0); MEAN CORPUSCULAR VOLUME 73.7 fL (81.0-99.0); MEAN PLATELET VOLUME 11.1 fL (7.9-10.8); MONOCYTES # (AUTO) 0.3 10^3/uL (0.0-1.0); MONOCYTES % (AUTO) 3.5 %; NEUTROPHILS # (AUTO) 5.2 10^3/uL (1.5-6.6); NEUTROPHILS % (AUTO) 66.5 %; PLT - PLATELET COUNT 270 10^3/uL (130-450); RED BLOOD COUNT 4.71 10^6/uL (4.20-5.40); RED CELL DISTRIBUTION WIDTH 17.8 % (12.0-15.0); WHITE BLOOD COUNT 7.8 x10^3/uL (4.8-10.8)
[2023-02-06 11:52] LABS: BILIRUBIN,URINE NEGATIVE (NEGATIVE); GLUCOSE, URINE (UA) NEGATIVE (NEGATIVE); KETONES,URINE (UA) NEGATIVE (NEGATIVE); LEUKOCYTE ESTERASE, URINE SMALL (NEGATIVE); NITRITE,URINE NEGATIVE (NEGATIVE); OCCULT BLOOD,URINE NEGATIVE (NEGATIVE); PH,URINE 6.5 PH (5.0-7.5); PROTEIN,URINE NEGATIVE (NEGATIVE); UROBILINOGEN,URINE 0.2 (NORMAL) E.U./dL (NORMAL)
[2023-02-06 12:09] LABS: BACTERIA,URINE Rare /HPF (None Seen); CLARITY,URINE CLEAR (CLEAR); RBC,URINE N /HPF (0-5); SQUAMOUS EPITHELIAL CELL,UR MOD Squamous (<= Few)
[2023-02-07 03:09] LABS: HBsAG SCREEN Negative (Negative); HCV AB Non Reactive (Non Reactive)
[2023-02-07 05:11] LABS: HIV SCREEN 4TH GENERATION Non Reactive (Non Reactive)
[2023-02-07 06:09] LABS: RPR Non Reactive (Non Reactive)
[2023-02-07 12:09] LABS: VARICELLA-ZOSTER AB IGG 461 index (Immune >165)
== END 2023-02-06 10:29 | disposition home or self-care (01) ==
LOC: LAB 10:28
PROVIDERS: ATTEND Nurse Practitioner
DX: Z34.90 Encounter for supervision of normal pregnancy, unspecified, unspecified trimester (principal)
CPT/HCPCS: 36415; 81001; 85025; 86592; 86762; 86787; 86803; 86850; 86900; 86901; 87086; 87340; 87389

== ENCOUNTER 2023-02-12 08:00 | Outpatient (CLI) | payer MEDICAID ==
[2023-02-12 23:11] LABS: CHLAMYDIA TRACHOMATIS DNA NEGATIVE (NEGATIVE); NEISSERIA GONORRHOEAE DNA NEGATIVE (NEGATIVE); TRICHOMONAS VAGINALIS DNA NEGATIVE (NEGATIVE)
[2023-02-13 01:33] LABS: BACTERIAL VAGINOSIS DNA POSITIVE (NEGATIVE); CANDIDA GLABRATA DNA NEGATIVE (NEGATIVE); CANDIDA GROUP DNA NEGATIVE (NEGATIVE); CANDIDA KRUSEI DNA NEGATIVE (NEGATIVE); TRICHOMONAS VAGINALIS DNA NEGATIVE (NEGATIVE)
== END 2023-02-12 23:59 | disposition home or self-care (01) ==
LOC: LAB.WC 08:00
PROVIDERS: ATTEND Nurse Practitioner
DX: N89.8 Other specified noninflammatory disorders of vagina (principal)
CPT/HCPCS: 81514; 87491; 87591; 87661

== ENCOUNTER 2023-02-14 08:51 | Outpatient (CLI) | payer MEDICAID ==
--- NOTE | 2023-02-14 14:01 | Ultrasound Report ---
PROCEDURE: OB First Trimester w/TV INDICATIONS: POSITIVE TEST OUTSIDE/PRIOR DATING DATA: Last menstrual period (LMP): 12/24/2022. LMP-based estimated date of delivery (SHANI): 09/30/2023. First dating scan (date and location): 02/14/2023. Estimated date of delivery (SHANI) from first dating scan: 10/04/2023. TECHNIQUE: Real-time scanning was performed of the fetus and maternal pelvic organs, with image documentation. Endovaginal scanning was also performed to better visualize the fetus and maternal ovaries. COMPARISON: None. FINDINGS: Intrauterine gestational sac present. Embryo: Urania-rump length 0.83 cm corresponds with a 6 week 6 day gestation. Normal-appearing yolk s ac identified. Heart rate: 143 bpm. Other: No perigestational fluid collection. Measurement variability in dating: +/- 4 weeks by LMP, +/- 7 days by mean sac diameter (use before 6 weeks gestation if crown-rump length not able to be measured), +/- 5 days by crown-rump length (6-12 weeks gestation). Maternal organs: Ovaries show coarse luteum cyst in the right ovary 2.2 cm IMPRESSION: Single live intrauterine corresponds to a 6 week 6 day gestation Reviewed by: Gibran Decker MD on 02/14/2023 1:00 PM [facility] Approved by: Gibran Decker MD on 02/14/2023 1:00 PM [facility] Station ID: [id number]
== END 2023-02-14 08:52 | disposition home or self-care (01) ==
LOC: DI 08:51
PROVIDERS: ATTEND Nurse Practitioner
DX: Z34.91 Encounter for supervision of normal pregnancy, unspecified, first trimester (principal)

== ENCOUNTER 2023-02-16 17:51 | Emergency (ER) | payer MEDICAID ==
[2023-02-16 18:04] VITALS: O2SAT 98
[2023-02-16 18:56] LABS: B. PARAPERTUSSIS- RESP PCR PAN NOT DETECTED; B. PERTUSSIS- RESP PCR PANEL NOT DETECTED; C. PNEUMONIAE- RESP PCR PANEL NOT DETECTED; CORONAVIRUS 229E-RESP PCR NOT DETECTED; CORONAVIRUS HKU1-RESP PCR NOT DETECTED; CORONAVIRUS NL63-RESP PCR NOT DETECTED; CORONAVIRUS OC43-RESP PCR NOT DETECTED; HUMAN METAPNEUMOVIRUS NOT DETECTED; INFLUENZA A- RESP PCR PANEL NOT DETECTED; INFLUENZA B - RESP PCR PANEL NOT DETECTED; M. PNEUMONIAE- RESP PCR PANEL NOT DETECTED; PARAINFLUENZA VIRUS 1 NOT DETECTED; PARAINFLUENZA VIRUS 2 NOT DETECTED; PARAINFLUENZA VIRUS 3 NOT DETECTED; PARAINFLUENZA VIRUS 4 NOT DETECTED; RHINOVIRUS/ENTEROVIRUS DETECTED; RSV- RESP PCR PANEL NOT DETECTED; SARS-CoV-2 -RESP PCR PANEL NOT DETECTED
--- NOTE | 2023-02-16 21:33 | ED Physician Documentation ---
PD HPI URI - Stated complaint Stated Complaint: COUGH/7 WEEKS PREG - Chief complaint Chief Complaint: Resp - History obtained from History obtained from: Patient - Additional information Additional information: This is a very nice 27-year-old female presents with cough and nasal congestion started today. She has not had a fever, no difficulty breathing, no chest pain no abdominal pain. She does have some mild nausea and vomiting that was approximately 7 or 8 weeks and has had this throughout . She was mainly concerned because she is and was not sure what medication she could take or if the cold could hurt the baby. She denies any other concerns today. Review of Systems Constitutional: reports: Reviewed and negative Nose: reports: Rhinorrhea / runny nose, Congestion Throat: reports: Sore throat Cardiac: reports: Reviewed and negative Respiratory: reports: Cough. denies: Dyspnea, Hemoptysis, Wheezing GI: reports: Nausea, Vomiting. denies: Abdominal Pain, Abdominal Swelling : reports: Now EGA, Reviewed and negative PD PAST MEDICAL HISTORY - Past Medical History Past Medical History: No Cardiovascular: None Respiratory: None - Past Surgical History Past Surgical History: No - Present Medications Home Medications: Ambulatory Orders Medication Instructions Recorded Confirmed No Known Home Medications 12/02/21 12/02/21 - Allergies Allergies/Adverse Reactions: Allergies Allergy/AdvReac Type Severity Reaction Status Date / Time No Known Drug Allergies Allergy Verified 02/16/23 17:54 - Social History Does the pt smoke?: No Smoking Status: Never smoker Does the pt drink ETOH?: No Does the pt have substance abuse?: No - Immunizations Immunizations are current?: Yes PD ED PE NORMAL - Vitals Vital signs reviewed: Yes - General General: Alert and oriented X 3, No acute distress, Well developed/nourished - HEENT HEENT: Atraumatic, Moist mucous membranes, Pharynx benign - Neck Neck: Supple, no meningeal sign - Cardiac Cardiac: RRR, No murmur, No gallop, No rub - Respiratory Respiratory: No respiratory distress, Clear bilaterally Results - Vitals Vitals: Vital Signs - 24 hr 02/16/23 17:54 Temperature 36.5 C Heart Rate 120 H Respiratory 18 Rate Blood Pressure 150/80 H O2 Saturation 98 Oxygen O2 Source Room air - Labs Labs: Laboratory Tests 02/16/23 17:58 Nasal Adenovirus (PCR) NOT DETECTED Nasal B. parapertussis DNA (PCR) NOT DETECTED Nasal Coronavir 229E PCR NOT DETECTED Nasal Coronavir HKU1 PCR NOT DETECTED Nasal Coronavir NL63 PCR NOT DETECTED Nasal Coronavir OC43 PCR NOT DETECTED Nasal Enterovir/Rhinovir PCR DETECTED A Nasal Influenza B PCR NOT DETECTED Nasal Influenza A PCR NOT DETECTED Nasal Parainfluen 1 PCR NOT DETECTED Nasal Parainfluen 2 PCR NOT DETECTED Nasal Parainfluen 3 PCR NOT DETECTED Nasal Parainfluen 4 PCR NOT DETECTED Nasal RSV (PCR) NOT DETECTED Nasal B.pertussis DNA PCR NOT DETECTED Nasal C.pneumoniae (PCR) NOT DETECTED Rusty Human Metapneumo PCR NOT DETECTED Nasal M.pneumoniae (PCR) NOT DETECTED Nasal SARS-CoV-2 (PCR) NOT DETECTED PD Medical Decision Making - ED course Complexity details: reviewed results, d/w patient ED course: 27-year-old female presents with cough and congestion that started today. She is well-appearing here on physical exam, mildly tachycardic initially that improved, and she appears in no respiratory distress, afebrile and nontoxic. Her viral panel is positive for rhinovirus. I discussed this with the patient, recommended supportive measures and discussed medication that is available to her during . At this time no additional testing is indicated as patient is very well-appearing and this should be self-limiting. I did discuss return precautions however if new any new or worsening symptoms. Departure - Departure Disposition: 01 Home, Self Care Clinical Impression: Rhinovirus infection Upper respiratory tract infection Qualifiers: URI type: unspecified viral URI Qualified Code(s): J06.9 - Acute upper respiratory infection, unspecified Condition: Good Instructions: ED Viral Syndrome Comments: You have a common cold virus called rhinovirus. This typically last around 5 to 7 days and usually gets better on its own. You do not need antibiotics. Please get plenty of rest, stay well-hydrated, you can take Tylenol as needed and you can take a little bit of Benadryl as well if needed for cough or congestion.If you have worsening symptoms, please return to the ER. Forms: PCP List
[2023-02-16 21:37] VITALS: BP 130/80
== END 2023-02-16 21:34 | disposition home or self-care (01) ==
LOC: ED 17:51
DX: O98.811 Other maternal infectious and parasitic diseases complicating pregnancy, first trimester (principal); B97.89 Other viral agents as the cause of diseases classified elsewhere; O99.511 Diseases of the respiratory system complicating pregnancy, first trimester; J06.9 Acute upper respiratory infection, unspecified; Z3A.01 Less than 8 weeks gestation of pregnancy; Z11.52 Encounter for screening for COVID-19
CPT/HCPCS: 87633; 99283

== ENCOUNTER 2023-03-13 15:15 | Outpatient (CLI) | payer MEDICAID ==
[2023-03-13 16:17] LABS: HCT - HEMATOCRIT 35.2 % (37.0-47.0); HGB - HEMOGLOBIN 10.7 g/dL (12.0-16.0); MEAN CORPUSCULAR HEMOGLOBIN 22.7 pg (27.0-31.0); MEAN CORPUSCULAR HGB CONC 30.4 g/dL (32.0-36.0); MEAN CORPUSCULAR VOLUME 74.6 fL (81.0-99.0); RED BLOOD COUNT 4.72 10^6/uL (4.20-5.40); RED CELL DISTRIBUTION WIDTH 17.8 % (12.0-15.0); WHITE BLOOD COUNT 7.9 x10^3/uL (4.8-10.8)
[2023-03-13 16:23] LABS: CREATININE,URINE 66.2 mg/dL; PROTEIN/CREATININE RATIO,URINE 0.1 (<=0.2)
== END 2023-03-13 15:16 | disposition home or self-care (01) ==
LOC: LAB 15:15
PROVIDERS: ATTEND Obstetrics & Gynecology
DX: O10.911 Unspecified pre-existing hypertension complicating pregnancy, first trimester (principal)
CPT/HCPCS: 36415; 82570; 84156; 85027

== ENCOUNTER 2023-04-16 14:15 | Outpatient (CLI) | payer MEDICAID | END 2023-04-16 14:16 | disposition home or self-care (01) | LOC: LAB 14:15 | PROVIDERS: ATTEND Nurse Practitioner | DX: O09.891 Supervision of other high risk pregnancies, first trimester (principal); Z36.8A Encounter for antenatal screening for other genetic defects ==

== ENCOUNTER 2023-05-31 10:16 | Outpatient (CLI) | payer MEDICAID ==
[2023-05-31 10:30] LABS: HCT - HEMATOCRIT 33.5 % (37.0-47.0); HGB - HEMOGLOBIN 10.4 g/dL (12.0-16.0); MEAN CORPUSCULAR HEMOGLOBIN 24.2 pg (27.0-31.0); MEAN CORPUSCULAR VOLUME 78.1 fL (81.0-99.0); MEAN PLATELET VOLUME 11.3 fL (7.9-10.8); RED BLOOD COUNT 4.29 10^6/uL (4.20-5.40); RED CELL DISTRIBUTION WIDTH 17.5 % (12.0-15.0); WHITE BLOOD COUNT 8.1 x10^3/uL (4.8-10.8)
[2023-05-31 10:44] LABS: CREATININE,URINE 163.8 mg/dL; PROTEIN/CREATININE RATIO,URINE 0.2 (<=0.2)
[2023-05-31 10:45] LABS: ALBUMIN 3.5 g/dL (3.2-5.5); BILIRUBIN,TOTAL 0.3 mg/dL (0.2-1.0); CALCIUM 9.7 mg/dL (8.5-10.3); CREATININE 0.5 mg/dL (0.6-1.3); POTASSIUM 3.8 mmol/L (3.5-4.5); TOTAL PROTEIN 6.9 g/dL (6.4-8.9)
== END 2023-05-31 10:17 | disposition home or self-care (01) ==
LOC: LAB 10:16
PROVIDERS: ATTEND Obstetrics & Gynecology
DX: O09.892 Supervision of other high risk pregnancies, second trimester (principal); O16.9 Unspecified maternal hypertension, unspecified trimester
CPT/HCPCS: 36415; 80053; 82105; 82570; 84156; 85027

== ENCOUNTER 2023-06-03 08:23 | Outpatient (CLI) | payer MEDICAID ==
--- NOTE | 2023-06-04 13:48 | Ultrasound Report ---
PROCEDURE: OB Anatomy Scan INDICATIONS: SUPERVISON OF OUTSIDE/PRIOR DATING DATA: Last menstrual period (LMP): 12/24/2022. LMP-based estimated date of delivery (SHANI): 09/30/2023. First dating scan (date and location): 02/06/2023. Estimated date of delivery (SHANI) from first dating scan: 10/04/2023. The below data below was generated using the working SHANI of 09/30/2023 TECHNIQUE: Real-time scanning was performed of the fetus, with image documentation and biometric measurements. Endovaginal scanning: Not performed. COMPARISON: OB ultrasound, 02/06/2023. FINDINGS: General: A single living intrauterine gestation is present. Presentation: Variable Placenta: Placental position is posterior, without previa. Amniotic fluid index: 13.3 cm; largest pocket 4.6 cm. heart rate: 133 beats per minute. Maternal cervical canal: 4.9 cm long; normal length is 2.5 cm or more. biometrics: Biparietal diameter: 5.06 cm; 21 weeks 2 days; 3.3%. Head circumference: 20.0 cm; 22 weeks 1 day; 10.0%. Abdominal circumference: 18.18 cm; 23 weeks 0 days; 42.0%. Femur length: 4.22 cm; previously weeks 5 days; 64.1%. Estimated gestational age (clinical): 23 weeks 0 day Composite gestational age from present scan: 22 weeks 3 days Estimated weight and percentile: 566.0 g; 49.1% Measurement variability in biometric dating: +/- 10 days from 12-20 weeks gestation, +/- 2 weeks from 20-30 weeks gestation, +/- 3 weeks at 30 weeks gestation or later. Anatomic survey: Neuro: Ventricles are normal at less than 10 mm. Cisterna magna is normal at 3-11 mm. Cerebellum i s normal in size and morphology. Nuchal skin fold: Normal at less than 6 mm between 14 and 20 weeks gestational age. Face: Nose and lips, facial profile are normal. Spine: No evidence for spina bifida. Heart: 4-chambered heart is present, with normal ventricular outflow tracts. Diaphragm: Diaphragm is intact. Stomach: Left-sided stomach is present. Kidneys: No hydronephrosis. Normal is less than 5 mm in 2nd trimester, less than 7 mm in 3rd trimester. Cord: 3 vessel cord has orthotopic insertion. Bladder: Normal in size. Extremities: All 4 extremities are visualized. IMPRESSION: 1. A single living IUP with normal overall interval growth. 2. The biparietal diameter is 3.3% for gestational age. Recommend a follow-up exam. 3. Normal GAEL. 4. The estimated weight is 49.1% for gestational age. 5. Normal anatomic survey. Reviewed by: Marie Reynaga MD on 06/04/2023 1:46 PM PDT Approved by: Marie Reynaga MD on 06/04/2023 1:46 PM PDT Station ID: [id number]
== END 2023-06-03 08:24 | disposition home or self-care (01) ==
LOC: DI 08:23
PROVIDERS: ATTEND Nurse Practitioner
DX: O09.892 Supervision of other high risk pregnancies, second trimester (principal); Z3A.22 22 weeks gestation of pregnancy

== ENCOUNTER 2023-06-28 08:00 | Outpatient (CLI) | payer MEDICAID ==
[2023-06-28 16:36] LABS: BILIRUBIN,URINE NEGATIVE (NEGATIVE); GLUCOSE, URINE (UA) NEGATIVE (NEGATIVE); KETONES,URINE (UA) NEGATIVE (NEGATIVE); LEUKOCYTE ESTERASE, URINE LARGE (NEGATIVE); NITRITE,URINE NEGATIVE (NEGATIVE); OCCULT BLOOD,URINE NEGATIVE (NEGATIVE); PROTEIN,URINE NEGATIVE (NEGATIVE); UROBILINOGEN,URINE 0.2 (NORMAL) E.U./dL (NORMAL)
[2023-06-28 17:25] LABS: BACTERIA,URINE Many /HPF (None Seen); CLARITY,URINE CLOUDY (CLEAR); RBC,URINE 0-5 /HPF (0-5); SQUAMOUS EPITHELIAL CELL,UR MANY Squamous (<= Few)
== END 2023-06-28 23:59 | disposition home or self-care (01) ==
LOC: LAB.WC 08:00
PROVIDERS: ATTEND Obstetrics & Gynecology
DX: R30.0 Dysuria (principal)
CPT/HCPCS: 81001; 87086

== ENCOUNTER 2023-06-28 10:33 | Outpatient (CLI) | payer MEDICAID ==
[2023-06-28 11:38] LABS: HCT - HEMATOCRIT 32.5 % (37.0-47.0); HGB - HEMOGLOBIN 10.2 g/dL (12.0-16.0); MEAN CORPUSCULAR HEMOGLOBIN 24.8 pg (27.0-31.0); MEAN CORPUSCULAR HGB CONC 31.4 g/dL (32.0-36.0); MEAN CORPUSCULAR VOLUME 78.9 fL (81.0-99.0); PLT - PLATELET COUNT 218 10^3/uL (130-450); RED BLOOD COUNT 4.12 10^6/uL (4.20-5.40); RED CELL DISTRIBUTION WIDTH 16.3 % (12.0-15.0); WHITE BLOOD COUNT 7.7 x10^3/uL (4.8-10.8)
[2023-06-29 08:10] LABS: RPR Non Reactive (Non Reactive)
== END 2023-06-28 10:34 | disposition home or self-care (01) ==
LOC: LAB 10:33
PROVIDERS: ATTEND Obstetrics & Gynecology
DX: O09.892 Supervision of other high risk pregnancies, second trimester (principal); Z36.8A Encounter for antenatal screening for other genetic defects; O99.891 Other specified diseases and conditions complicating pregnancy; R30.0 Dysuria
CPT/HCPCS: 36415; 82950; 85025; 85027; 86592

== ENCOUNTER 2023-07-10 11:37 | Outpatient (CLI) | payer MEDICAID ==
[2023-07-10 11:57] VITALS: BP 117/79; O2SAT 97
[2023-07-10 13:15] LABS: BILIRUBIN,URINE NEGATIVE (NEGATIVE); GLUCOSE, URINE (UA) NEGATIVE (NEGATIVE); KETONES,URINE (UA) TRACE mg/dL (NEGATIVE); LEUKOCYTE ESTERASE, URINE TRACE (NEGATIVE); NITRITE,URINE NEGATIVE (NEGATIVE); OCCULT BLOOD,URINE NEGATIVE (NEGATIVE); PROTEIN,URINE NEGATIVE (NEGATIVE); UROBILINOGEN,URINE 0.2 (NORMAL) E.U./dL (NORMAL)
[2023-07-10 13:18] LABS: CLARITY,URINE HAZY (CLEAR)
[2023-07-10 13:38] LABS: CREATININE,URINE 250.9 mg/dL; PROTEIN/CREATININE RATIO,URINE 0.1 (<=0.2)
[2023-07-10 13:44] LABS: BACTERIA,URINE Few /HPF (None Seen); MUCUS,URINE Moderate Strands; RBC,URINE 0-5 /HPF (0-5); SQUAMOUS EPITHELIAL CELL,UR MOD Squamous (<= Few)
[2023-07-11 00:44] LABS: BACTERIAL VAGINOSIS DNA UNRESOLVED (NEGATIVE); CANDIDA KRUSEI DNA UNRESOLVED (NEGATIVE)
[2023-07-11 00:45] LABS: CANDIDA GLABRATA DNA UNRESOLVED (NEGATIVE); CANDIDA GROUP DNA UNRESOLVED (NEGATIVE); TRICHOMONAS VAGINALIS DNA UNRESOLVED (NEGATIVE)
--- NOTE | 2023-07-20 21:46 | PROVIDER PROGRESS NOTE ---
- HPI Chief Complaint: Other (spotting) Current : date of visit 07/10/23 27 yo at 28w2d. 2 prior pregnancie. presents with spotting. recent UTI with abx treatment. very little blood when wiping. irritated. Vital Signs Temperature 98.8 F 07/10/23 11:45 Heart Rate 123 H 07/10/23 11:45 Respiratory Rate 17 07/10/23 11:45 Blood Pressure 117/79 07/10/23 11:45 O2 Saturation 97 07/10/23 11:45 Temperature 98.8 F 07/10/23 11:45 Heart Rate 123 H 07/10/23 11:45 Respiratory Rate 17 07/10/23 11:45 Blood Pressure 117/79 07/10/23 11:45 O2 Saturation 97 07/10/23 11:45 If not protocol: Oxygen Flow, liters/minute - Exam FHT normal. no contractions. abdomen not tender. genital exam deferred. - Procedures OB Procedure Performed: Other (none) NST Procedure: gestation too early for NST - Plan Plan: likely yeast infection from abx. recommend otc yeast med. patient agrees and declines exam. just wanted to know baby was OK and she was not елена. discharge home. RTC if more bleeding.
== END 2023-07-10 12:50 | disposition home or self-care (01) ==
LOC: WFO 11:37 → FBP 11:38 → WFO 12:50
PROVIDERS: ATTEND Obstetrics & Gynecology
DX: O26.853 Spotting complicating pregnancy, third trimester (principal); Z3A.28 28 weeks gestation of pregnancy; Z87.440 Personal history of urinary (tract) infections
CPT/HCPCS: 81001; 81514; 82570; 84156; 99214; 99215

== ENCOUNTER 2023-07-13 15:00 | Outpatient (CLI) | payer MEDICAID ==
--- NOTE | 2023-07-15 10:06 | Ultrasound Report ---
PROCEDURE: OB Follow up INDICATIONS: SUPERVISION OF OUTSIDE/PRIOR DATING DATA: Last menstrual period (LMP): 12/24/2022. LMP-based estimated date of delivery (SHANI): 09/30/2023. First dating scan (date and location): 02/14/2023. Estimated date of delivery (SHANI) from first dating scan: 10/04/2023. The below data below was generated using the clinical SHANI of 09/30/2023 TECHNIQUE: Real-time scanning was performed of the fetus, with image documentation and biometric measurements. COMPARISON: 06/03/2023 FINDINGS: General: A single living intrauterine gestation is present. Presentation: Vertex Placenta: Placental position is posterior, without previa. Amniotic fluid index: 12.8 cm, within normal limits for gestational age. heart rate: 140 beats per minute. Maternal cervical canal: 2.9 cm long; normal length is 2.5 cm or more. biometrics: Biparietal diameter: 7.0 cm 28 weeks 0 days 17th percentile Head circumference: 26 cm 28 weeks 1 day 9th percentile Abdominal circumference: 24.5 cm 28 weeks 5 days 43rd percentile Femur length: 5.5 cm 29 weeks 1 day 49th percentile Estimated gestational age from initial scan: 28 weeks 5 days Composite gestational age from present scan: 28 weeks 4 days Estimated weight and percentile: 1279 g 38th percentile Measurement variability in biometric dating: +/- 10 days from 12-20 weeks gestation, +/- 2 weeks from 20-30 weeks gestation, +/- 3 weeks at 30 weeks gestation or more. Other: Not applicable. IMPRESSION: Single live intrauterine with ultrasound gestational age today of 28 weeks 4 days. weight measures 38th percentile. GAEL is 12.8 cm. Reviewed by: Janell Matias MD on 07/15/2023 10:04 AM PDT Approved by: aJnell Matias MD on 07/15/2023 10:04 AM PDT Station ID: [id number]
== END 2023-07-13 15:01 | disposition home or self-care (01) ==
LOC: DI 15:00
PROVIDERS: ATTEND Obstetrics & Gynecology
DX: O09.893 Supervision of other high risk pregnancies, third trimester (principal); Z3A.28 28 weeks gestation of pregnancy

== ENCOUNTER 2023-08-09 08:00 | Outpatient (CLI) | payer MEDICAID ==
[2023-08-09 21:02] LABS: BACTERIAL VAGINOSIS DNA NEGATIVE (NEGATIVE); CANDIDA GLABRATA DNA NEGATIVE (NEGATIVE); CANDIDA GROUP DNA POSITIVE (NEGATIVE); CANDIDA KRUSEI DNA NEGATIVE (NEGATIVE); TRICHOMONAS VAGINALIS DNA NEGATIVE (NEGATIVE)
== END 2023-08-09 23:59 | disposition home or self-care (01) ==
LOC: LAB.WC 08:00
PROVIDERS: ATTEND Nurse Practitioner
DX: N89.8 Other specified noninflammatory disorders of vagina (principal)
CPT/HCPCS: 81514

== ENCOUNTER 2023-08-14 17:58 | Emergency (ER) | payer MEDICAID ==
--- NOTE | 2023-08-14 18:21 | ED Physician Documentation ---
PD HPI URI - Stated complaint Stated Complaint: SOA/COUGH/BACK PX - Chief complaint Chief Complaint: Resp - History obtained from History obtained from: Patient - Additional information Additional information: 27-year-old female, 33 weeks , Presents this cough and heart palpitations. She states it both her children were sick recently and she just started to have a cough congestion sore throat last couple days with mild increased shortness of breath today and a sensation of her palpitations that started about 3 hours ago. She has not had a fever, denies any chest pain, no lower extremity swelling or pain. She has been tolerating po well. She has not attempted any medication for this issue. No underlying history of asthma or lung disease. She reports good movement, no vaginal bleeding, contractions, loss of fluid. 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 : None HEENT: None Psych: None Musculoskeletal: None Derm: None - Past Surgical History Past Surgical History: No - Present Medications Home Medications: Ambulatory Orders Medication Instructions Recorded Confirmed Albuterol Sulf [Ventolin Hfa 1 - 2 puffs INH Q4HR PRN #1 each 08/14/23 Inhaler] 147/Iron/Folic Acid 1 tab PO DAILY 08/14/23 08/14/23 [Ziphex Tablet] guaiFENesin [Mucinex] 600 mg PO BID PRN #20 tablet 08/14/23 - Allergies Allergies/Adverse Reactions: Allergies Allergy/AdvReac Type Severity Reaction Status Date / Time No Known Drug Allergies Allergy Verified 08/14/23 18:08 - Social History Does the pt smoke?: No Smoking Status: Never smoker Does the pt drink ETOH?: No Does the pt have substance abuse?: No - Immunizations Immunizations are current?: Yes - POLST Patient has POLST: No PD ED PE NORMAL - Vitals Vital signs reviewed: Yes - General General: Alert and oriented X 3, No acute distress, Well developed/nourished - HEENT HEENT: Atraumatic, Ears normal, Moist mucous membranes, Pharynx benign - Neck Neck: Supple, no meningeal sign, No adenopathy - Cardiac Cardiac: No murmur, Other (Tachycardic) - Respiratory Respiratory: No respiratory distress, Other (Scattered expiratory wheezes nonlabored) - Abdomen Abdomen: Normal bowel sounds, Soft, Non tender, Other (gravid) - Derm Derm: Normal color, Warm and dry, No rash - Extremities Extremities: No deformity, No edema - Neuro Neuro: Alert and oriented X 3 Eye Opening: Spontaneous Motor: Obeys Commands Verbal: Oriented GCS Score: 15 Results - Vitals Vitals: Vital Signs - 24 hr 08/14/23 08/14/23 08/14/23 18:02 18:29 19:52 Temperature 37.0 C Heart Rate 128 H 138 H 124 H Respiratory 16 20 18 Rate Blood Pressure 132/86 H 128/73 O2 Saturation 94 99 Oxygen O2 Source Room air - Labs Labs: Laboratory Tests 08/14/23 18:19 Nasal Adenovirus (PCR) NOT DETECTED Nasal B. parapertussis DNA (PCR) NOT DETECTED Nasal Coronavir 229E PCR NOT DETECTED Nasal Coronavir HKU1 PCR NOT DETECTED Nasal Coronavir NL63 PCR NOT DETECTED Nasal Coronavir OC43 PCR NOT DETECTED Nasal Enterovir/Rhinovir PCR DETECTED A Nasal Influenza B PCR NOT DETECTED Nasal Influenza A PCR NOT DETECTED Nasal Parainfluen 1 PCR NOT DETECTED Nasal Parainfluen 2 PCR NOT DETECTED Nasal Parainfluen 3 PCR NOT DETECTED Nasal Parainfluen 4 PCR NOT DETECTED Nasal RSV (PCR) NOT DETECTED Nasal B.pertussis DNA PCR NOT DETECTED Nasal C.pneumoniae (PCR) NOT DETECTED Rusty Human Metapneumo PCR NOT DETECTED Nasal M.pneumoniae (PCR) NOT DETECTED Nasal SARS-CoV-2 (PCR) NOT DETECTED PD Medical Decision Making - ED course Complexity details: reviewed results, re-evaluated patient, considered differential, d/w patient ED course: 27-year-old female who is 33 weeks presents with cough, nasal congestion tachycardia as described in HPI. On arrival here, the patient's heart rates in the 130s, but she appears in no acute distress, oxygenating well on room air. She does have some mild wheezing on exam and therefore was given DuoNeb With some improvement in her breathing. She remained tachycardic however and I discussed that it may be secondary to viral syndrome, but I cannot rule out other more serious causes such as PE. I think this to be less likely however patient is at increased risk due to . EKG was obtained which shows sinus tachycardia, no ischemic changes. She declined IV but did drink a liter of water and HR improved to 108. She declined lab work at this time and declined x-ray and would like to try supportive measures for her cold at home and will return if she feels increasing shortness of breath or new concerns. Will discharge her with cough medication and albuterol to use as needed. Departure - Departure Disposition: Home, Self Care Clinical Impression: Upper respiratory tract infection Qualifiers: URI type: unspecified viral URI Qualified Code(s): J06.9 - Acute upper respiratory infection, unspecified Condition: Good Instructions: ED Viral Syndrome Prescriptions: Albuterol Sulf [Ventolin Hfa Inhaler] 1 - 2 puffs INH Q4HR PRN #1 each PRN Reason: Shortness Of Air/Wheezing guaiFENesin [Mucinex] 600 mg PO BID PRN #20 tablet PRN Reason: Cough Forms: PCP List Discharge Date/Time: 08/14/23 19:53
[2023-08-14] MEDS: IPRATROPIUM/ALBUTEROL 3 ML NEB INH STA (18:28)
[2023-08-14] MEDS: DEXAMETHASONE 10 MG/ML VIAL PO STA (19:15)
[2023-08-14] MEDS: CHERRY SYRUP 10 ML UDC PO ONE (19:15)
[2023-08-14 19:23] LABS: B. PARAPERTUSSIS- RESP PCR PAN NOT DETECTED; B. PERTUSSIS- RESP PCR PANEL NOT DETECTED; C. PNEUMONIAE- RESP PCR PANEL NOT DETECTED; CORONAVIRUS 229E-RESP PCR NOT DETECTED; CORONAVIRUS HKU1-RESP PCR NOT DETECTED; CORONAVIRUS NL63-RESP PCR NOT DETECTED; CORONAVIRUS OC43-RESP PCR NOT DETECTED; HUMAN METAPNEUMOVIRUS NOT DETECTED; INFLUENZA A- RESP PCR PANEL NOT DETECTED; INFLUENZA B - RESP PCR PANEL NOT DETECTED; M. PNEUMONIAE- RESP PCR PANEL NOT DETECTED; PARAINFLUENZA VIRUS 1 NOT DETECTED; PARAINFLUENZA VIRUS 2 NOT DETECTED; PARAINFLUENZA VIRUS 3 NOT DETECTED; PARAINFLUENZA VIRUS 4 NOT DETECTED; RHINOVIRUS/ENTEROVIRUS DETECTED; RSV- RESP PCR PANEL NOT DETECTED; SARS-CoV-2 -RESP PCR PANEL NOT DETECTED
[2023-08-14 19:59] VITALS: BP 128/73; O2SAT 99
== END 2023-08-14 19:53 | disposition home or self-care (01) ==
LOC: ED 17:58
DX: O99.513 Diseases of the respiratory system complicating pregnancy, third trimester (principal); J06.9 Acute upper respiratory infection, unspecified; Z3A.33 33 weeks gestation of pregnancy
CPT/HCPCS: 87633; 93005; 94640; 94664; 99284; A9270

== ENCOUNTER 2023-09-06 08:00 | Outpatient (CLI) | payer MEDICAID | END 2023-09-06 23:59 | disposition home or self-care (01) | LOC: LAB.WC 08:00 | PROVIDERS: ATTEND Obstetrics & Gynecology | DX: Z36.85 Encounter for antenatal screening for Streptococcus B (principal) | CPT/HCPCS: 87797 ==

== ENCOUNTER 2023-09-06 12:50 | Outpatient (CLI) | payer MEDICAID ==
--- NOTE | 2023-09-06 14:23 | Ultrasound Report ---
PROCEDURE: OB Follow up INDICATIONS: HYPERTENSION OUTSIDE/PRIOR DATING DATA: The below data below was generated using the clinical SHANI of 09/30/2023 TECHNIQUE: Real-time scanning was performed of the fetus, with image documentation and biometric measurements. Endovaginal scanning: Not performed. COMPARISON: 07/13/2023 FINDINGS: General: A single living intrauterine gestation is present. Presentation: Vertex Placenta: Placental position is posterior, without previa. Amniotic fluid index: 19.3 cm, within normal limits for gestational age. heart rate: 124 beats per minute. Maternal cervical canal: 3.6 cm long; normal length is 2.5 cm or more. biometrics: Biparietal diameter: 8.97 cm, 36 weeks 2 days, 55 percentile Head circumference: 31.7 cm, 35 weeks 4 day, 8 percentile Abdominal circumference: 29.0 cm, 33 weeks 0 day, 1 percentile Femur length: 7.27 cm, 37 weeks 2 days, 65 percentile Estimated gestational age from initial scan: 36 weeks 4 days Composite gestational age from present scan: 35 weeks 4 days Estimated weight and percentile: 2521.7 g, 13.7 percentile Measurement variability in biometric dating: +/- 10 days from 12-20 weeks gestation, +/- 2 weeks from 20-30 weeks gestation, +/- 3 weeks at 30 weeks gestation or more. Other: Not applicable. IMPRESSION: Single living intrauterine at 36 weeks 4 days, SHANI of 09/30/2023 Estimated weight of 2521.7 g, 13.7th percentile. Abdominal circumference is 1st percentile. Head circumference is 8 percentile. Reviewed by: Robert Joseph MD on 09/06/2023 1:21 PM DAYDAY Approved by: Robert Joseph MD on 09/06/2023 1:21 PM DAYDAY Station ID: [id number]
== END 2023-09-06 12:51 | disposition home or self-care (01) ==
LOC: DI 12:50
PROVIDERS: ATTEND Obstetrics & Gynecology
DX: O09.893 Supervision of other high risk pregnancies, third trimester (principal); O10.913 Unspecified pre-existing hypertension complicating pregnancy, third trimester; Z3A.36 36 weeks gestation of pregnancy

== ENCOUNTER 2023-09-13 10:47 | Outpatient (CLI) | payer MEDICAID ==
--- NOTE | 2023-09-13 11:36 | Ultrasound Report ---
PROCEDURE: OB Limited INDICATIONS: SUPERVISION OF OTHER HIGH RISK OUTSIDE/PRIOR DATING DATA: Last menstrual period (LMP): 12/24/2022. LMP-based estimated date of delivery (SHANI): 09/30/2023. First dating scan (date and location): 02/14/2023. Estimated date of delivery (SHANI) from first dating scan: 10/04/2023. The below data below was generated using the working SHANI of 09/30/2023 TECHNIQUE: Real-time scanning was performed of the fetus, with image documentation. Endovaginal scanning: Not indicated COMPARISON: 02/14/2023, 06/03/2023, 07/13/2023 and 09/06/2023. FINDINGS: A single living intrauterine gestation is present. Presentation: Vertex Placenta: Placental position is posterior fundal, without previa. Amniotic fluid index: 15.7 cm, 64.1% for gestational age. heart rate: 138 beats per minutes. Maternal cervical canal: Closed and visually normal in length. Estimated gestational age from initial scan: 37 weeks, 4 days. IMPRESSION: 1. Single live intrauterine gestation with fetus in vertex presentation. heart rate is 138 bpm. 2. Normal GAEL at 15.7 cm, with the largest pocket measures 5.9 cm. Reviewed by: Antonio Templeton MD on 09/13/2023 11:35 AM PDT Approved by: Antonio Templeton MD on 09/13/2023 11:35 AM PDT Station ID: [id number]
== END 2023-09-13 10:48 | disposition home or self-care (01) ==
LOC: DI 10:47
PROVIDERS: ATTEND Obstetrics & Gynecology
DX: O09.893 Supervision of other high risk pregnancies, third trimester (principal); Z3A.37 37 weeks gestation of pregnancy

== ENCOUNTER 2023-09-26 07:50 | Inpatient (IN) | payer MEDICAID ==
[2023-09-26] MEDS ORDERED: lidocaine 1% 20 ML MDV ID PRN (10:04)
[2023-09-26] MEDS ORDERED: TERBUTALINE 1 MG/ML VIAL SUBQ PRN (10:04)
[2023-09-26] MEDS ORDERED: miSOPROStoL 200 MCG TABLET PR PRN (10:04)
[2023-09-26] MEDS ORDERED: TRANEXAMIC ACID IN NACL 1,000 MG/100 ML BAG IV PRN (10:04)
[2023-09-26] MEDS ORDERED: LABETALOL 20 MG/4 ML SYRINGE IVP PRN ×3 (10:04)
[2023-09-26] MEDS ORDERED: NIFEdipine 10 MG CAPSULE PO PRN (10:04)
[2023-09-26] MEDS ORDERED: hydrALAZINE INJ 20 MG/ML VIAL IVP PRN ×2 (10:04)
[2023-09-26] MEDS ORDERED: CALCIUM CARBONATE CHEW 500 MG TABLET PO PRN (10:04)
[2023-09-26] MEDS ORDERED: OXYTOCIN 10 UNIT/ML VIAL IM PRN (10:04)
[2023-09-26] MEDS ORDERED: fentaNYL 100 MCG/2 ML VIAL IVP PRN (10:04)
[2023-09-26] MEDS ORDERED: ONDANSETRON ODT 4 MG TABLET PO PRN (10:04)
[2023-09-26] MEDS ORDERED: miSOPROStoL 200 MCG TABLET BC PRN (10:04)
[2023-09-26] MEDS ORDERED: CARBOPROST TROMETHAMINE 250 MCG/ML VIAL IM PRN (10:04)
--- NOTE | 2023-09-26 10:09 | HISTORY & PHYSICAL EXAMINATION ---
Admit History - Visit Reason Visit Reason: Other (IOL) - Smoking Status: Never smoker - Other Maternal History Other Maternal History: HPI: Anum is a 28 yo at 39w3d presenting for induction of labor for preexisting hypertension, not on medications. She is feeling well. [place] some irregular contractions last night, none on admission. Denies LOF, VB, FOLEY, vision changes. + FM. Last growth US 09/05: EFW 2521g, 13.7%tile (AC 1%tile, HC 8%tile). monitoring form: LMP: 12/24/22 SHANI by LMP: 09/30/23 US:02/15/24@ 6+6 c/w LMP (10/04/23 SHANI by US) Final SHANI: 09/30/2023 It'S A BOY!! has 4yo/2 yo at home. ANC c/b: 1. chronic HTN, no meds - on aspirin - Growth US 07/09 38%tile, repeat in 4-6 weeks, ordered - NSTs start at 34 weeks due to BMI and HTN - Baseline P:C 0.1, PLT 227 - also had with prior pregnancies, although did not do ANS or IOL 2. BMI 44+ - on aspirin - previous child 6#10 - see above regarding NSTs 3. , h/o 2 FTNSVDs, new FOB this time - complex partner situation. not together. 4. Cervical polyp on long thin stalk extending into cervical canal, having some light pink spotting. Discussed possible removal if bleeding becomes heav ier/persistent. Pre- Weight:249 BMI: 44.27 Blood type: A+ Antibody: Negative CBC: H/H 10.6/34.7 plt 270 RUB:IMM VZV:IMM HBsAg: Neg HepC: NR RPR/AB-EIA:NR HIV:NR PAP: 03/11/2023Normal GC/CT: negative. 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 Family Hx: noncontributory Allergies: NKDA Meds: baby aspirin, PNV PE: Gen: NAD Chest: non labored respirations Abd: gravid, non tender Ext: trace LE edema, no evidence of DVT SVE: 1/long/-3, cephalic monitoring FHTs: 140s bpm baseline, + accel, - decel, mod variability Roberta: irregular Labs: reviewed A/P: 28 yo at 39w3d: - Preexisting hypertension, no meds - Class 3 obesity - Cervical polyp in - GBS neg - Rh pos - Rubella immune - Varicella immune - Plan for IOL with vaginal misoprostol. IOL consent reviewed and signed. - Pain management per patient request. Jayson Lowery MD - HPI Current EDU 09/30/23 Gestation 39 Weeks and 3 Days 3 Vital Signs Temperature 98.2 F 09/26/23 07:57 Heart Rate 76 09/26/23 07:57 Respiratory Rate 16 09/26/23 07:57 Blood Pressure 123/68 09/26/23 07:57 Temperature 98.2 F 09/26/23 07:57 Heart Rate 76 09/26/23 07:57 Respiratory Rate 16 09/26/23 07:57 Blood Pressure 123/68 09/26/23 07:57 O2 Saturation If not protocol: Oxygen Flow, liters/minute Meds/Allgy - Home Medications Home Medications: Ambulatory Orders Medication Instructions Recorded Confirmed Albuterol Sulf [Ventolin Hfa 1 - 2 puffs INH Q4HR PRN #1 each 08/14/23 Inhaler] 147/Iron/Folic Acid 1 tab PO DAILY 08/14/23 08/14/23 [Ziphex Tablet] guaiFENesin [Mucinex] 600 mg PO BID PRN #20 tablet 08/14/23 - Allergies Allergies/Adverse Reactions: Allergies Allergy/AdvReac Type Severity Reaction Status Date / Time No Known Drug Allergies Allergy Verified 08/14/23 18:08 Physical - Abdominal Exam Vital Signs: Temp Pulse Resp BP Pulse Ox O2 Flow Rate 98.2 F 76 16 123/68 09/26/23 07:57 09/26/23 07:57 09/26/23 07:57 09/26/23 07:57 Plan for Labor - Plan For Labor I expect patient to be DC'd or transferred within 96 hours.: Yes
[2023-09-26 10:25] LABS: BASOPHILS % (AUTO) 0.3 %; EOSINOPHILS # (AUTO) 0.2 10^3/uL (0.0-0.7); EOSINOPHILS % (AUTO) 2.4 %; HCT - HEMATOCRIT 34.4 % (37.0-47.0); LYMPHOCYTES # (AUTO) 1.8 10^3/uL (1.5-3.5); MEAN CORPUSCULAR HEMOGLOBIN 25.2 pg (27.0-31.0); MEAN CORPUSCULAR VOLUME 78.9 fL (81.0-99.0); MONOCYTES # (AUTO) 0.2 10^3/uL (0.0-1.0); MONOCYTES % (AUTO) 2.7 %; NEUTROPHILS # (AUTO) 4.9 10^3/uL (1.5-6.6); NEUTROPHILS % (AUTO) 69.2 %; PLT - PLATELET COUNT 197 10^3/uL (130-450); RED BLOOD COUNT 4.36 10^6/uL (4.20-5.40); RED CELL DISTRIBUTION WIDTH 16.2 % (12.0-15.0)
[2023-09-26 10:37] LABS: ALBUMIN 3.5 g/dL (3.2-5.5); ALBUMIN/GLOBULIN RATIO 1.1 (1.0-2.2); BILIRUBIN,TOTAL 0.3 mg/dL (0.2-1.0); CALCIUM 9.3 mg/dL (8.5-10.3); CREATININE 0.5 mg/dL (0.6-1.3); POTASSIUM 3.4 mmol/L (3.5-4.5); TOTAL PROTEIN 6.6 g/dL (6.4-8.9)
[2023-09-26] MEDS: miSOPROStoL 100 MCG TABLET VG SCH (10:42)
[2023-09-26] MEDS: SODIUM CHLORIDE FLUSH 0.9% 10 ML SYRINGE IVP SCH (18:15)
[2023-09-26] MEDS: SODIUM CHLORIDE FLUSH 0.9% 10 ML SYRINGE IVP PRN (18:15)
[2023-09-27] MEDS: LACTATED RINGERS 1,000 ML IV PRN
[2023-09-27] MEDS: OXYTOCIN/SODIUM CHLORIDE 500 ML IV SCH (00:01)
[2023-09-27] MEDS: ONDANSETRON 4 MG/2 ML VIAL IVP PRN (05:11)
[2023-09-27] MEDS ORDERED: ROPIVACAINE 0.2% 200 MG/100 ML BAG EP ONE (05:42)
[2023-09-27] MEDS ORDERED: LIDOCAINE 2%-EPI 1:100000 20 ML MDV ONE (05:53)
--- NOTE | 2023-09-27 06:31 | ANESTHESIA ---
Pre-Anesthesia VS, & Labs - Diagnosis labor pain - Procedure labor epidural Vital Signs: Temp Pulse Resp BP Pulse Ox O2 Flow Rate 36.8 C 109 H 16 102/58 L 96 09/26/23 07:57 09/26/23 10:58 09/26/23 10:58 09/26/23 10:58 09/26/23 10:58 Height: 5 ft 3 in Weight (kg): 108.819 kg Body Mass Index: 42.5 BMI Classification: Morbidly Obese - NPO Other - Is Patient ?: Yes - Lab Results Current Lab Results: Laboratory Tests 09/26/23 09:35: Sodium 135, Potassium 3.4 L, Chloride 104, Carbon Dioxide 22, Anion Gap 9.0, BUN 8, Creatinine 0.5 L, Estimated GFR (MDRD) 181, Glucose 144 H, Calcium 9.3, Total Bilirubin 0.3, AST 16, ALT 12, Alkaline Phosphatase 98, Total Protein 6.6, Albumin 3.5, Globulin 3.1, Albumin/Globulin Ratio 1.1 09/26/23 09:35: Blood Type A POSITIVE, Antibody Screen NEGATIVE 09/26/23 09:35: WBC 7.0, RBC 4.36, Hgb 11.0 L, Hct 34.4 L, MCV 78.9 L, MCH 25.2 L, MCHC 32.0, RDW 16.2 H, Plt Count 197, MPV 13.0 H, Neut # (Auto) 4.9, Lymph # (Auto) 1.8, Cowley # (Auto) 0.2, Eos # (Auto) 0.2, Baso # (Auto) 0.0, Absolute Nucleated RBC 0.00, Nucleated RBC % 0.0 Fish Bones: 09/26/23 09:35 09/26/23 09:35 Home Medications and Allergies Active Medications Acetaminophen (Acetaminophen 500 Mg Tablet) 1,000 mg PO Q8HR PRN PRN Reason: Mild Pain or Fever>38C(100.4F) Calcium Carbonate/Glycine (Calcium Carbonate Chew 500 Mg Tablet) 1,000 mg PO Q6HR PRN PRN Reason: Heartburn Carboprost Tromethamine (Carboprost Tromethamine 250 Mcg/Ml Vial) 250 mcg IM .ONCE PRN PRN Reason: Hemorrhage Fentanyl (Fentanyl 100 Mcg/2 Ml Vial) 50 mcg IVP Q1H PRN PRN Reason: Severe Pain (score 7-10) Hydralazine HCl (Hydralazine Inj 20 Mg/Ml Vial) 10 mg IVP .ONCE PRN; Protocol PRN Reason: SBP> or= 160 OR DBP> or= 110 Hydralazine HCl (Hydralazine Inj 20 Mg/Ml Vial) 5 - 10 mg IVP Q20M PRN; Protocol PRN Reason: SBP> or= 160 OR DBP> or= 110 Lactated Ringer's (Lr) 500 mls @ 999 mls/hr IV PRN PRN PRN Reason: Abdominal Pain Last Admin: 09/27/23 00:00 Dose: 125 mls/hr Oxytocin/Sodium Chloride (Pitocin/Sodium Chloride) 500 mls @ 999 mls/hr IV PRN PRN; Protocol PRN Reason: POST- HEMORR PREVENTION Tranexamic Acid (Tranexamic 1,000 Mg/100ml-Nacl) 1,000 mg in 100 mls @ 600 mls/hr IV Q30M PRN PRN Reason: EBL >1200mL and within 3hr Oxytocin/Sodium Chloride (Pitocin/Sodium Chloride) 500 mls @ 2 mls/hr IV TITR RANJITH; Protocol Last Admin: 09/27/23 00:01 Dose: 2 milliunit/min, 2 mls/hr Labetalol HCl (Labetalol 20 Mg/4 Ml Syringe) 20 mg IVP .ONCE PRN; Protocol PRN Reason: SBP> or= 160 OR DBP> or= 110 Labetalol HCl (Labetalol 20 Mg/4 Ml Syringe) 20 - 80 mg IVP Q10M PRN; Protocol PRN Reason: SBP> or= 160 OR DBP> or= 110 Labetalol HCl (Labetalol 20 Mg/4 Ml Syringe) 20 - 40 mg IVP Q10M PRN; Protocol PRN Reason: SBP> or= 160 OR DBP> or= 110 Lidocaine HCl (Lidocaine 1% 20 Ml Mdv) 20 ml ID .ONCE PRN PRN Reason: PERINEAL REPAIR Stop: 09/29/23 10:05 Misoprostol (Misoprostol 200 Mcg Tablet) 600 mcg BC .ONCE PRN PRN Reason: Hemorrhage Misoprostol (Misoprostol 200 Mcg Tablet) 800 mcg AK .ONCE PRN PRN Reason: Hemorrhage Nifedipine (Nifedipine 10 Mg Capsule) 10 - 20 mg PO Q20M PRN; Protocol PRN Reason: SBP> or= 160 OR DBP> or= 110 Ondansetron HCl (Ondansetron Odt 4 Mg Tablet) 4 mg PO Q4HR PRN PRN Reason: Nausea / Vomiting Ondansetron HCl (Ondansetron 4 Mg/2 Ml Vial) 4 mg IVP PRN PRN PRN Reason: Nausea / Vomiting Last Admin: 09/27/23 05:11 Dose: 4 mg Oxytocin (Oxytocin 10 Unit/Ml Vial) 10 unit IM .ONCE PRN PRN Reason: Step One if no IV access. Sodium Chloride (Sodium Chloride Flush 0.9% 10 Ml Syringe) 10 ml IVP Q8H RANJITH Last Admin: 09/26/23 18:15 Dose: 10 ml Sodium Chloride (Sodium Chloride Flush 0.9% 10 Ml Syringe) 10 ml IVP PRN PRN PRN Reason: NEEDED PER PROVIDER ORDERS Last Admin: 09/26/23 18:15 Dose: 10 ml Terbutaline Sulfate (Terbutaline 1 Mg/Ml Vial) 0.25 mg SUBQ .ONCE PRN PRN Reason: Tachystole 147/Iron/Folic Acid [Ziphex Tablet] 1 tab PO DAILY 08/14/23 Allergies/Adverse Reactions: Allergies Allergy/AdvReac Type Severity Reaction Status Date / Time No Known Drug Allergies Allergy Verified 08/14/23 18:08 Anes History & Medical History - Anesthetic History Anesthesia Complications: reports: No previous complications Family history of Anesthesia Complications: Denies Family history of Malignant Hyperthermia: Denies - Medical History Cardiovascular: reports: Other Pulmonary: reports: None Gastrointestinal: reports: None Urinary: reports: None Neuro: reports: None Musculoskeletal: reports: None Endocrine/Autoimmune: reports: None Blood Disorders: reports: None Skin: reports: None Smoking Status: Never smoker Psychosocial: reports: No issues indicated - Obstetrical History Events: reports: induced HTN, Labor induction Complications: reports: induced HTN Exam General: Alert, Oriented x3, Cooperative Dental: WNL Mouth Openin Fingerbreadth Neck Mobility: Normal Mallampati classification: II Thyromental Distance: 4-6 cm Respiratory: Lungs clear Cardiovascular: Regular rate Plan Anesthesia Type: Epidural Consent for Procedure(s) Verified and Reviewed: Yes Code Status: Attempt Resuscitation ASA classification: 3-Severe systemic disease Is this case an emergency?: No
[2023-09-27] MEDS ORDERED: NALOXONE 0.4 MG/ML VIAL IVP PRN (06:32)
[2023-09-27] MEDS ORDERED: NALBUPHINE 10 MG/ML AMP IVP PRN (06:32)
[2023-09-27] MEDS ORDERED: ONDANSETRON 4 MG/2 ML VIAL IVP PRN (06:32)
[2023-09-27] MEDS ORDERED: ePHEDrine 50 MG/ML VIAL IVP PRN (06:32)
[2023-09-27] MEDS ORDERED: ROPIVACAINE 0.2% 200 MG/100 ML BAG EP PRN (06:32)
[2023-09-27] MEDS ORDERED: METOCLOPRAMIDE 10 MG/2 ML VIAL IVP PRN (06:32)
[2023-09-27] MEDS ORDERED: diphenhydrAMINE INJ 50 MG/ML VIAL IVP PRN (06:32)
--- NOTE | 2023-09-27 07:13 | PROVIDER PROGRESS NOTE ---
Labor Progress Note - Labor Progress Note Labor Progress Note/Additional Text: Anum received 3 doses of vaginal misoprostol yesterday and then was started on pitocin last night. Pitocin increased to 12 overnight but then decreased to 6 due to tachysystole. S: She is now comfortable s/p epidural. Consents to SVE and AROM. O: VS reviewed. SVE: 4/70/-2, AROM with small amount of clear fluid FHTs: 150s bpm baseline, + accel, + early decelerations, mod variability [place]: q 2-3 min on pitocin A/P: 28 yo undergoing IOL for preexisting hypertension: - S/p misoprostol x 3, now on pitocin and s/p AROM. Repeat SVE in 4 hrs or sooner PRN. - BPs normotensive Jayson Lowery MD
[2023-09-27] MEDS ORDERED: LACTATED RINGERS 1,000 ML IV SCH (14:00)
[2023-09-27] MEDS: OXYTOCIN/SODIUM CHLORIDE 500 ML IV PRN (14:00)
[2023-09-27] MEDS ORDERED: METHYLERGONOVINE 0.2 MG/ML VIAL ONE (14:11)
[2023-09-27] MEDS: IBUPROFEN 600 MG TABLET PO SCH (14:14)
[2023-09-27] MEDS: ACETAMINOPHEN 500 MG TABLET PO PRN (14:14)
[2023-09-27] MEDS: METHYLERGONOVINE 0.2 MG/ML VIAL IM ONE (14:14)
--- NOTE | 2023-09-27 21:02 | DELIVERY NOTE ---
Delivery Note - Labor Labor: positive: Induced by ARM (induction started with misoprostol, then pitocin and AROM), Induced by oxytocin, Other - Infant Delivery Method Infant Delivery Method: positive: Spontaneous vaginal delivery - Cervical Ripening Method Cervical Ripening Method: positive: Misoprostil - Presentation Presentation: positive: Vertex - Nuchal Cord Nuchal Cord: positive: None - Anesthetic Anesthetic Type: - Amniotic Fluid Description Amniotic Fluid Description: positive: Clear - Episiotomy Type Episiotomy Type: positive: None - Laceration Laceration: positive: None - Delivery Outcome Delivery Outcome: positive: Livebirth - Elizabeth: positive: Placed in direct skin contact with mother, Stimulated, Warmed, Lyman used sex: positive: Male - Cord Cord: positive: 3 vessels - Placenta Placenta: positive: Intact, Spontaneous - Estimated Blood Loss Estimated Blood Loss (in cc): 450 - Post Delivery Events Post Delivery Events: positive: No post delivery events - Delivery Comments (Free Text/Narrative) Delivery Comments (Free Text/Narrative): patient was admitted for induction due to h/o htn but none since first visit. last ultrasound with very small AC. given misoprostol and then pitocin overnight. had epidural then AROM at 7 am. after that some variable decels and early but no lates. moderate variability. She was complete and I was called for delivery. As they set Anum up for delivery, the baby was . She pushed once and baby delivered. He was placed on her abdomen and was vigourous. I waited about 2 min to clamp the cord. Mom cut the cord. Placenta delivered right after. uterus bled a bit then contracted well. OT infused in the iv. then more bleeding later and methergine was given as bps had been normal. baby boy weighed 8 pound even. perineum, vagina and cervix inspected and all intact. Cervical polyp noted antenatally but I could not see one today. looked carefully after delivery. Anum and baby boy resting well.
[2023-09-28 03:28] VITALS: O2SAT 99
[2023-09-28] MEDS ORDERED: DOCUSATE SODIUM 100 MG CAPSULE PO SCH (09:00)
[2023-09-28 09:38] VITALS: BP 92/71
--- NOTE | 2023-09-28 11:28 | DISCHARGE SUMMARY ---
"Discharge Summary Admit Date: 09/26/23 Discharge Date: 09/28/23 Discharging Provider: Jerry Code Status: Attempt Resuscitation Condition at Discharge: Good Discharge Disposition: 01 Home, Self Care - DIAGNOSES Admission Diagnoses: at 39 weeks. h/o htn obesity Discharge Diagnoses with Status of Each Condition: s/p induced labor with vaginal delivery - stable doing well with her infant. acute blood loss anemia after delivery - stable. - HPI History of Present Illness: with her 3rd child. BP at first visit 140/90 and some h/o htn before that. Admitted at 39w 3d for induction. - CONSULTS | PROCEDURES Procedures: Vaginal delivery - HOSPITAL COURSE Hospital Course: Admitted for labor induction. received misoprostol during the day and into the first night, 3 doses total. oxytocin was begun. She recieved her epidural early on the morning of delivery and then, once she was comfortable, AROM was done around 7 am on morning of delivery. She was 4 cm. Pitocin was at 6 mu. She progressed well and by noon she was complete. I was called to come for delivery and by the time we put her legs in the stirrups, baby's head was . She pushed once and delivered her baby at 12:15. Baby boy 3637 gm = 8lb even Apgars 7/9. Placenta delivered normally. some extra post bleeding and she was given 2 bags of pitocin total and 1 dose of methergine. She had no elevated bps during her stay. AM hb was 9.3 but she was not symptomatic and was ready for discharge on ppd1. She is breast and bottle feeding and would like ocps for pp bcm. - ALLERGIES Allergies/Adverse Reactions: Allergies Allergy/AdvReac Type Severity Reaction Status Date / Time No Known Drug Allergies Allergy Verified 08/14/23 18:08 - MEDICATIONS Home Medications: Ambulatory Orders Medication Instructions Recorded Confirmed Albuterol Sulf [Ventolin Hfa 1 - 2 puffs INH Q4HR PRN #1 each 08/14/23 Inhaler] 147/Iron/Folic Acid 1 tab PO DAILY 08/14/23 08/14/23 [Ziphex Tablet] Acetaminophen [Tylenol] 1,000 mg PO Q8HR PRN tab 09/28/23 Docusate Sodium 100Mg Capsule 100 mg PO DAILY PRN cap 09/28/23 [Colace 100Mg Capsule] Ferrous Sulfate 325 mg PO DAILY #90 tab 09/28/23 Ibuprofen [Motrin] 600 mg PO Q6H tab 09/28/23 - PHYSICAL EXAM AT DISCHARGE General Appearance: positive: No acute distress Cardiovascular: positive: Regular rate & rhythm Abdomen: positive: Non-tender Extremities: positive: Non-tender - LABS Result Diagrams: 09/28/23 05:20 09/26/23 09:35 - FOLLOW UP Follow Up: 1 week in clinic. - TIME SPENT Time Spent in Discharge (Minutes): 20"
--- NOTE | 2023-09-28 13:47 | Labor Flowsheet ---
Labor Flowsheet Datetime Report Generated by CPN: 09/28/2023 13:47 Datetime: 09/28/2023 08:47 VITAL SIGNS NBP Sys/Kayli/Mean (mmHg): 92 : 71 : 76 Pulse: 166 Datetime: 09/27/2023 22:48 SpO2 (%): 98 Datetime: 09/27/2023 13:59 Temperature (C): 36.7 Temperature Route: Oral Datetime: 09/27/2023 13:33 PAIN Pain Scale: 0 Datetime: 09/27/2023 12:45 Pain Presence: None/Denies Datetime: 09/27/2023 12:36 MEDICATIONS Pitocin (milliunits): Decreased to @ 100 Datetime: 09/27/2023 12:21 Medication Comments: PP bolus Datetime: 09/27/2023 12:16 Stage of : Recovery Datetime: 09/27/2023 12:15 STAGE 2 Pushing: Coached on Pushing Pushing Position: Pushing with Contractions Stage 2 Comments: without pushing efforts. Datetime: 09/27/2023 12:14 FHR Baseline Rate : 140 I/O Interventions: Malloy Discontinued LaborFlag: Labor Datetime: 09/27/2023 12:11 Vaginal Exam Comments: Datetime: 09/27/2023 12:10 ASSESSMENT A Monitor Mode: External US Variability: Moderate 6-25 bpm Accelerations: None Decelerations: Variable Category: Category II Pushing Progress: Perineal Bulging COMMUNICATION Communication: Provider at Bedside Provider Notified (Name): Dr. Edwards at bedside prepping for delivery Datetime: 09/27/2023 12:09 Monitor Interventions for UA: [place] Adjusted Monitor Interventions for FHR: Ultrasound Adjusted Datetime: 09/27/2023 12:00 UTERINE ACTIVITY Monitor Mode: External Frequency (min): 2-3 Quality: Strong Duration (sec): 50-70 Pattern: Normal: <= 5 Contractions in 10 Minutes Resting Tone (Palpate): Relaxed Actions for Decelerations: Side to Side Comments: Awaiting MD for delivery Datetime: 09/27/2023 11:45 Communication Comments: Notified of SVE. Provider will present for delivery Datetime: 09/27/2023 11:42 VAGINAL EXAM Dilatation (cm): 10.0 Effacement (%): 100 Station: 1 Exam by: Stobaugh, RN Datetime: 09/27/2023 11:36 Patient Position/Activity: Right Lateral Datetime: 09/27/2023 11:24 Contraction Comments: Baselined Datetime: 09/27/2023 11:11 Hygiene: Underpad Changed; Peripad Changed Patient Care Comments: luis/catheter care Datetime: 09/27/2023 10:45 Pitocin Checklist: At Least 1 Acceleration of 15 bpm x 15 Seconds in 30 Minutes or Adequate Variabi lity; No More than 1 Late Deceleration Occurred in Past 30 Minutes; No More than 2 Variable Decelerat ions > 60 Seconds in Duration and decreasing >60 bpm in 30 minutes; No More than 5 Uterine Contractio ns in 10 Minutes for any 20 Minute Interval; Uterus Palpates Soft between Contractions Datetime: 09/27/2023 09:55 Provider Reviewed Strip: Yes Strip Reviewed by: Dr. Edwards Datetime: 09/27/2023 09:14 Pain Type: Cramping Pain Location: Abdomen; Back Pain Goal: 2 Pain Assessment Comments: Pt. used EPCA, Pt. in high fowlers now Datetime: 09/27/2023 08:58 Notification Reason: Status Update; Status; Labor Status; Uterine Activity Datetime: 09/27/2023 08:29 Vaginal Bleeding: Normal Show Cervix, Consistency: Moderate Cervix, Position: Midposition Datetime: 09/27/2023 08:17 PATIENT CARE IV/Blood Work: New IV Bag Hung Datetime: 09/27/2023 06:55 Membranes Ruptured Date/Time: 09/27/2023 06:55 Membranes Rupture Method: Artificial Amniotic Fluid Color: Clear Amniotic Fluid Amount: Small Amniotic Fluid Odor: None Datetime: 09/27/2023 06:43 Anesthesia Level Check: T10- Umbilicus Datetime: 09/27/2023 06:38 Respirations: 16 Datetime: 09/27/2023 06:32 FHR Baseline Changes: No Baseline Change Datetime: 09/27/2023 06:23 Bedside Blood Glucose: 0 Datetime: 09/27/2023 06:19 Oxygen Method: Room Air Datetime: 09/27/2023 06:13 Epidural Procedure: Loading Dose Epidural Procedure Other: Pump Started Datetime: 09/27/2023 05:48 PROCEDURE TIME OUT Procedure Verify: Correct Patient Identity; Correct Side and Site are Marked; Accurate Procedure Co nsent Form; Agreement on Procedure to be Done; Correct Patient Position; Relevant Images and Results are Properly Labeled and Displayed; Addressed Need to Administer Antibiotics or Fluids for Irrigation ; Safety Precautions Based on Patient History or Medication Use ANESTHESIA Anesthesia Plans: Epidural Anesthesia Interview: E Epidural Positioning: Sitting Anesthesia Comments: E Ceja at BS TEACHING Instructional Method: Verbal; Patient Instructed Plan of Care: Plan of Care Discussed Pain Management: Epidural Datetime: 09/26/2023 22:50 Nurse Giving Report: Shawnee Abelino Datetime: 09/26/2023 19:28 Cervical Ripening Agents: Cytotec @
== END 2023-09-28 13:30 | disposition home or self-care (01) | DRG 806 ==
LOC: WFO 07:50 → FBP 07:53 → WFO 10:03 → FBP 10:04
PROVIDERS: ADMIT Obstetrics & Gynecology; ATTEND Obstetrics & Gynecology
PROC: 3E033VJ Introduction of Other Hormone into Peripheral Vein, Percutaneous Approach (ICD-10-PCS; 2023-09-26)
PROC: 3E0DXGC Introduction of Other Therapeutic Substance into Mouth and Pharynx, External Approach (ICD-10-PCS; 2023-09-26)
PROC: 10E0XZZ Delivery of Products of Conception, External Approach (ICD-10-PCS; principal; 2023-09-27)
PROC: 10907ZC Drainage of Amniotic Fluid, Therapeutic from Products of Conception, Via Natural or Artificial Opening (ICD-10-PCS; 2023-09-27)
DX: O10.92 Unspecified pre-existing hypertension complicating childbirth (principal); D62 Acute posthemorrhagic anemia; Z37.0 Single live birth; O99.214 Obesity complicating childbirth; Z3A.39 39 weeks gestation of pregnancy; O90.81 Anemia of the puerperium; Z86.79 Personal history of other diseases of the circulatory system; E66.01 Morbid (severe) obesity due to excess calories; O76 Abnormality in fetal heart rate and rhythm complicating labor and delivery
CPT/HCPCS: 36415; 59409; 80053; 85018; 85025; 86850; 86900; 86901; A9270; J2210; J7120

== ENCOUNTER 2023-10-28 08:00 | Outpatient (CLI) | payer MEDICAID ==
[2023-10-28 20:57] LABS: BACTERIAL VAGINOSIS DNA POSITIVE (NEGATIVE); CANDIDA GLABRATA DNA NEGATIVE (NEGATIVE); CANDIDA GROUP DNA NEGATIVE (NEGATIVE); CANDIDA KRUSEI DNA NEGATIVE (NEGATIVE); TRICHOMONAS VAGINALIS DNA NEGATIVE (NEGATIVE)
== END 2023-10-28 23:59 | disposition home or self-care (01) ==
LOC: LAB.WC 08:00
PROVIDERS: ATTEND Obstetrics & Gynecology
DX: N89.8 Other specified noninflammatory disorders of vagina (principal)
CPT/HCPCS: 81514